=== PATIENT | female | born 1990 | race Caucasian/White ===

== ENCOUNTER → 2018-11-14 13:32 | Outpatient (CLI) | payer OTHER, SELFPAY ==
[2017-06-14 07:17] VITALS: BMI 22.3
--- NOTE | 2018-11-14 13:33 | US_ITS ---
STUDY: SECOND AND THIRD TRIMESTER OBSTETRICAL ULTRASOUND REASON FOR EXAM: Female, 28 years old. Routine survey. LMP: June 23, 2018. TECHNIQUE: Transabdominal and Transvaginal TECHNICAL QUALITY: Adequate. PRIOR ULTRASOUND: None. FINDINGS: There is a single intrauterine fetus. The fetus is in a transverse lie with the head on the maternal right side. There is demonstrated cardiac activity with a heart rate of 121 bpm. There is a normal amniotic fluid volume. The largest amniotic fluid pocket measures 5.2 cm x 4.6 cm. The amniotic fluid index (NASH) is normal. The placenta is posterior in location and is not low lying. There are Grade 0 placental changes. The cervix measures 4.4 cm in length. The bilateral adnexal regions are normal. BIOMETRY: BPD: 4.77 cm: 20 weeks, 3 days HC: 18.85 cm: 21 weeks, 2 days AC: 16.43 cm: 21 weeks, 4 days FL: 3.43 cm: 20 weeks, 6 days CI: 72% FL/BPD: 72% FL/HC: FL/AC: 21% HC/AC: 1.15 age by current US: 21 weeks, 1 days. KAREEN by current US: March 26, 2019. Estimated weight: 402 grams, +/- 59 grams, 76 %. Age by LMP: 20 weeks, 4 days. KAREEN by LMP: March 30, 2019. ANATOMY: Gender: Male Cranium: Normal lateral ventricles. Normal choroid plexus. Normal cerebellum. Normal cisterna magna. Normal face, nose and lips. Chest: Normal 4-chamber heart. Abdomen/Pelvis: Normal diaphragm. Normal stomach. Normal abdominal wall. Normal cord insertion. Normal 3 vessel cord. Normal kidneys. Normal bladder. Spine: Normal cervical spine. Normal thoracic spine. Normal lumbar spine. Normal sacrum. Extremities: Normal bilateral upper extremities. Normal bilateral lower extremities. US/OB Anatomy Scan IMPRESSION: Single live intrauterine gestation with a mean gestational age of 21 weeks and 1 day. Electronically Signed: Patrick Lockhart, at 9:39 EDT , Service support ,
[2018-11-14 17:25] LABS: Absolute Neutrophil Count 6.1 X10^3/uL (2.0-7.7); Basophil# 0.01 X10^3/uL; Basophil% 0.1 % (0-1); Eosinophil# 0.02 X10^3/uL; Eosinophils% 0.3 % (0-5); Hematocrit 32.9 % (37-47); Hemoglobin 10.8 g/dl (12.0-15.0); Lymphocyte % 17.8 % (19-41); Mean Corp Hgb Conc 32.8 g/gl (32-36); Mean Corpuscular Hgb 30.4 pg (27.0-32.0); Mean Corpuscular Volume 92.7 fL (81-99); Mean Platelet Vol. 9.3 fl (6.2-12.0); Monocyte% 3.8 % (0-10); Neutrophil # 6.12 X10^3/uL (2.7-7.7); Neutrophil % 77.7 % (47-70); Platelet Count 252 K/mm3 (150-450); RBC Distribution Width CV 14.6 % (11.6-14.6); RBC Distribution Width SD 47.9 fl (35.1-43.9); Red Blood Count 3.55 M/mm3 (4.2-5.4); White Blood Count 7.9 K/mm3 (4.4-11.0)
[2018-11-14 17:27] LABS: POSITIVE COUNT NO; POSITIVE DIFFERENTIAL NO; POSITIVE MORPHOLOGY NO
[2018-11-14 18:40] LABS: HIV - WCH Non-Reactive (Nonreactive); Rubella IgG 14.5 IU/mL
[2018-11-14 20:19] LABS: Chlamydia Trachomatis by PCR Negative (Negative); Neisserai gonorrhoeae by PCR Negative (Negative); Probe Check PASS; Sample Adequacy Control PASS; Specimen Processing Control PASS
[2018-11-17 10:04] LABS: HEPATITIS B SURFACE AG Negative (Negative)
[2018-11-19 12:53] LABS: HPV Reflexed? NOT INDICATED
[2018-11-21 01:43] LABS: Rapid Plasmin Reagin (RPR) NONREACTIVE (NONREACTIVE)
== END ==
PROVIDERS: Referring Provider Obstetrics & Gynecology; Visit Provider Obstetrics & Gynecology
DX: Z34.90 Encounter for supervision of normal pregnancy, unspecified, unspecified trimester (principal); Z12.4 Encounter for screening for malignant neoplasm of cervix
CPT/HCPCS: 36415; 76805; 85025; 86592; 86703; 86762; 86850; 86900; 87086; 87088; 87340; 87491; 87591; 87624; 88175; G0145

== ENCOUNTER → 2019-01-12 10:28 | Outpatient (CLI) | payer OTHER, SELFPAY ==
[2019-01-12 09:55] VITALS: BMI 19.3
[2019-01-12 11:13] LABS: Absolute Lymphocyte Count 0.93 X10^3/ul (0.83-4.51); Absolute Neutrophil Count 5.8 X10^3/uL (2.0-7.7); Basophil# 0.02 X10^3/uL; Basophil% 0.3 % (0-1); Eosinophil# 0.02 X10^3/uL; Eosinophils% 0.3 % (0-5); Hematocrit 32.7 % (37-47); Hemoglobin 10.8 g/dl (12.0-15.0); Lymphocyte # 0.93 X10^3/ul (4.0); Lymphocyte % 13.1 % (19-41); Mean Corpuscular Hgb 32.1 pg (27.0-32.0); Mean Corpuscular Volume 97.3 fL (81-99); Mean Platelet Vol. 9.1 fl (6.2-12.0); Monocyte# 0.29 X10^3/uL; Monocyte% 4.1 % (0-10); Neutrophil # 5.79 X10^3/uL (2.7-7.7); Neutrophil % 81.8 % (47-70); Platelet Count 179 K/mm3 (150-450); RBC Distribution Width CV 13.4 % (11.6-14.6); RBC Distribution Width SD 45.4 fl (35.1-43.9); Red Blood Count 3.36 M/mm3 (4.2-5.4); White Blood Count 7.1 K/mm3 (4.4-11.0)
[2019-01-12 11:14] LABS: POSITIVE COUNT NO; POSITIVE DIFFERENTIAL NO; POSITIVE MORPHOLOGY NO
[2019-01-12 11:21] LABS: Glucose Challenge Gest 1H 50g 120 mg/dL (70-140)
== END ==
PROVIDERS: Referring Provider Obstetrics & Gynecology; Visit Provider Obstetrics & Gynecology
DX: Z34.93 Encounter for supervision of normal pregnancy, unspecified, third trimester (principal); Z3A.29 29 weeks gestation of pregnancy
CPT/HCPCS: 36415; 82950; 85025

== ENCOUNTER → 2019-03-02 12:49 | Outpatient (CLI) | payer OTHER, SELFPAY ==
[2019-03-02 09:34] VITALS: BMI 19.3
== END ==
PROVIDERS: Referring Provider Obstetrics & Gynecology; Visit Provider Obstetrics & Gynecology
DX: Z34.93 Encounter for supervision of normal pregnancy, unspecified, third trimester (principal); Z3A.36 36 weeks gestation of pregnancy
CPT/HCPCS: 87081

== ENCOUNTER 2019-03-16 22:50 | Inpatient (IN) | payer SELFPAY ==
[2019-03-16 11:03] VITALS: BMI 19.3
[2019-03-16 23:12] VITALS: BMI 20.9
[2019-03-16] MEDS: Lactated Ringers 1,000 ML 50 ML IV (23:20)
[2019-03-16 23:53] LABS: Absolute Lymphocyte Count 1.24 X10^3/uL (0.83-4.51); Absolute Neutrophil Count 6.7 X10^3/uL (2.0-7.7); Basophil# 0.03 X10^3/uL; Basophil% 0.4 % (0-1); Eosinophil# 0.03 X10^3/uL; Eosinophils% 0.4 % (0-5); Hematocrit 34.8 % (37-47); Hemoglobin 11.7 g/dL (12.0-15.0); Lymphocyte # 1.24 X10^3/ul (4.0); Lymphocyte % 14.5 % (19-41); Mean Corp Hgb Conc 33.6 g/dL (32-36); Mean Corpuscular Volume 95.1 fL (81-99); Mean Platelet Vol. 10.3 fl (6.2-12.0); Monocyte% 5.9 % (0-10); NRBC Flagged by Analyzer 0 % (0-5); Neutrophil # 6.72 X10^3/uL (2.7-7.7); Neutrophil % 78.6 % (47-70); Platelet Count 194 K/mm3 (150-450); RBC Distribution Width CV 12.5 % (11.6-14.6); RBC Distribution Width SD 43.7 fl (35.1-43.9); Red Blood Count 3.66 M/mm3 (4.2-5.4); White Blood Count 8.5 K/mm3 (4.4-11.0)
[2019-03-17] MEDS: Oxytocin 30 units/NS 500 ml 30 UNITS/500 ML IV.SOLN 334 UNITS IV (00:49)
--- NOTE | 2019-03-17 01:01 | PCM.HP.OB ---
- Problem List (1) Vaginal after () Status: Acute (2) Anemia in preg-unspec Status: Acute (3) Status: Acute Qualifiers: Comment: carrier, ntd, and genetic screening declined. anatomy scan normal (4) Supervision of normal Status: Acute Qualifiers: Comment: PRR KAREEN 03/30/19 PC Robert Cowan, Desiree Altaf (5) Family history of congenital anomaly Status: Acute Comment: previous child with michel syndrome, family history dwarfism, declines any genetic screening. (6) Active labor at term Status: Acute History Date of Admission: 03/17/19 Final KAREEN: 03/30/19 Final KAREEN Source: US <20 weeks Gestational age: 38 Weeks and 1 Days History of this : This is a 28 year-old, at 38 weeks gestational age presents IAL 5 cm dilated. she is having regular contractions and some vaginal bleeding no lof. Surgical History: Surgical History (Last Reviewed 03/16/19 @ 11:03 by Yarely Urbina) History of delivery Z98.891 x1 Allergies No Known Allergies Allergy (Verified 03/16/19 11:03) Home Medications: Home Medications Ferrous Sulfate 325 mg PO DAILY@0800 06/14/17 Vits [Prenatabs FA] 1 tab PO DAILY 06/14/17 calcium carbonate,citrate-magnesium oxide 200 mg calcium-50 mg tablet tab PO tab 11/14/18 Smoking Status: Never smoker Number of Fetus(es): 1 Heart Tracing: fht 140 moderate variability reactive no decelerations category I tracing [place]: regular History Past Pregnancies: Past Pregnancies Pregancy History 4 Elective abortions Hx Para 3 Spontaneous abortions Hx # Term Pregnancies Ectopic pregnancies Hx # Pregnancies Multiple births # of living children Past Pregnancies Del. Date Name GA/Weeks Outcome Route Bth Weight Infant Gen Labor Lgth Anesthesia Del Locatn Provider FOB Unknown 2013 Chapo live - full term 7lbs 10oz Female Unknown 2014 Desiree live - full term 6lbs 6oz Male Unknown 2016 Robert live - full term 7lbs 2oz Male Delivery Date: No notes to display Delivery Date: On 11/14/18 @ 15:25 Мария Garibay michel syndrome, breech Delivery Date: No notes to display Labs: Mom's Labs & Results 03/16/19 03/16/19 23:20 23:20 WBC 8.5 RBC 3.66 L Hgb 11.7 L Hct 34.8 L MCV 95.1 MCH 32.0 MCHC 33.6 RDW Std Deviation 43.7 RDW Coeff of Machelle 12.5 Plt Count 194 MPV 10.3 Immature Gran % (Auto) 0.200 Neut % (Auto) 78.6 H Lymph % (Auto) 14.5 L [place] % (Auto) 5.9 Eos % (Auto) 0.4 Baso % (Auto) 0.4 Absolute Neuts (auto) 6.7 Absolute Lymphs (auto) 1.24 Nucleated RBC % 0 Blood Type A POSITIVE Antibody Screen NEGATIVE Course Did the patient receive Yes care? Labs Blood Type: A RH: POSITIVE RPR/VDRL/Syphilis Nonreactive Rubella status Immune HbSAg Negative Date Done: 11/14/18 Chlamydia Negative Gonorrhea Negative HIV/AIDS Non-Reactive Group B Strep: Negative Current Obstetrical History Gestational Diabetes No Incompetent Cervix No Infertility No IUGR No Macrosomia No Hypertension/Pre-eclampsia No Placenta Previa/Abruption No PTL/PROM No Uterine anomaly No Oligohydramnios No Polyhydramnios No Multiple gestation No Past Medical History Asthma No Diabetes No Hypertension No Heart disease No Mitral valve prolapse No Neurologic/Seizure disorder/ No Migraines Kidney disease No Liver disease No Varicosities No Clotting disorders/Hx of DVT No Thyroid Dysfunction No Other medical diseases No Psychiatric disorders No Major trauma No Abnormal PAP smear No Sleep apnea No Mammogram in the last 2 years No Social History Marital Status: Alleged father Altaf Werner Hx Smoking No Smoking Status Never smoker Expected Infant Delivery Method: Review of Systems Constitutional: Denies: Fever, Malaise Eyes: Denies: Blurred vision, Vision Change HEENT: Denies: Head Aches, Visual Changes Cardiovascular: Denies: Chest Pain, Palpitations Respiratory: Denies: Cough, Shortness of Breath, Wheezing Gastrointestinal: Denies: Abdominal Pain, Diarrhea, Nausea, Vomiting Genitourinary: Denies: Dysuria, Hematuria Musculoskeletal: Denies: Joint Pain, Muscle pain Skin: Denies: Lesions, Rash Neurological: Denies: Blurred vision, Focal weakness, Headaches Psychiatric: Denies: Anxiety, Depression Endocrine: Denies: Heat/ Cold Intolerance Hematologic/ Lymphatic: Denies: Easy Bruising, Easy Bleeding Physical Exam General: Alert, Cooperative, No apparent distress HEENT: Atraumatic, Normocephalic. Negative for: Thyromegaly, Lymphadenopathy Cardiovascular: Regular rate Lungs: Normal air movement Abdomen: Soft, Non Tender, Gravid Neurological: Deep Tendon Reflexes 2+/4 and Symmetrical, Neuro grossly intact. 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 Negative for: Vulvar lesions Estimated gestational size: Appropriate for gestational size Presentation: Cephalic Cervix Dilation (cm): 5 Assessment/Plan All Active Problems (Last Reviewed 03/16/19 @ 11:03 by Yarely Urbina) Vaginal after () (Acute) Active labor at term (Acute) Anemia in preg-unspec (Acute) (Acute) Supervision of normal (Acute) Family history of congenital anomaly (Acute) This is a 28 year-old, at 38 weeks gestational age presents IAL for TOLAC. h/o 1 successful TOLAC gbs neg minimal intervention planned
--- NOTE | 2019-03-17 01:04 | OP.PCM_ITS ---
Problem List (1) Vaginal after () Status: Acute (2) Anemia in preg-unspec Status: Acute (3) Status: Acute Qualifiers: Comment: carrier, ntd, and genetic screening declined. anatomy scan normal (4) Supervision of normal Status: Acute Qualifiers: Comment: PRR KAREEN 03/30/19 PC Robert Cowan Tyreevinh Altaf (5) Family history of congenital anomaly Status: Acute Comment: previous child with michel syndrome, family history dwarfism, declines any genetic screening. (6) Active labor at term Status: Acute Vaginal Delivery Maternal Presentation: Active Labor tolac Amniotic Membrane Rupture Type: Artificial Amniotic Fluid Description: Clear Final KAREEN: 03/30/19 Gestational age: 38 Weeks and 1 Days Date of Procedure: 03/17/19 Pre-Operative Diagnosis: ial Post-Operative Diagnosis: same Surgery/ Procedure Performed: - - Type of Anesthesia: None Description of Procedure: Patient began pushing and delivered the head in the HERMAN presentation. The head was delivered atraumatically and a loose nuchal cord ?1 was identified and easily reduced over the infant's head. The anterior and posterior shoulders delivered without complication followed by the rest of the and the infant was placed on the maternal abdomen. Delayed cord clamping was employed for approximately 60 seconds. Cord was clamped and cut and gentle traction was applied to the cord and the placenta delivered spontaneously immediately following it was noted to be intact with three-vessel cord. The perineum and va afshin were inspected and noted to have no laceration. EBL was 100 cc. Patient and infant tolerated delivery well. Presentation: HERMAN Placental Delivery Description: Spontaneous Placenta Disposition: [facility] Cord Vessel Description: 3 Vessels Nuchal Cord Compression: With compression Cord Entanglement: Around neck x 1, loose Estimated Blood Loss: 100 Infant A gender: Male (1 minute): 8 (5 minute): 9 Episiotomy Description: None Laceration: None Medications given after delivery: IV Pitocin Complications: None Multi Select Codes - Urinary/Genital Urinary/Genital CPT Codes: 01569 Vaginal Delivery [facility]
[2019-03-17] MEDS: Oxytocin 30 units/NS 500 ml 30 UNITS/500 ML IV.SOLN 167 UNITS IV (01:19)
[2019-03-17 04:03] VITALS: BP 112/58; PULSE 80; RESP 16; TEMP 37.3
[2019-03-17 08:30] VITALS: BP 100/58; PULSE 83; RESP 16; TEMP 36.9
[2019-03-17 12:45] VITALS: BP 107/59; PULSE 88; RESP 16; TEMP 36.7
[2019-03-17 15:59] VITALS: BP 104/55; PULSE 77; RESP 20; TEMP 36.4
[2019-03-17 20:40] VITALS: BP 96/53; PULSE 78; RESP 18; TEMP 36.6
[2019-03-18 01:25] VITALS: BP 105/53; PULSE 82; RESP 18; TEMP 36.6
[2019-03-18 04:45] VITALS: BP 105/56; PULSE 85; RESP 18; TEMP 36.1
--- NOTE | 2019-03-18 07:48 | PCM.PN.OB ---
Patient Problems: Active and Suspected Problems (Last Reviewed 03/16/19 @ 11:03 by Yarely Urbina) Vaginal after () (Acute) Active labor at term (Acute) Subjective: doing well no complaints pain controlled no CP SOB N V ambulating well tolerating po lochia moderate, going well - Physical Exam General: Alert, Oriented x3 Abdomen: Soft, Non Tender, - - FF below U Vital Signs Temp Pulse Resp BP 97.0 F L 85 18 105/56 L 03/18/19 04:45 03/18/19 04:45 03/18/19 04:45 03/18/19 04:45 Oxygen Delivery Method Room Air Weight: 130 lb Body Mass Index (BMI) 20.9 Intake and Output for Last 24 Hours 03/16/19 03/17/19 03/18/19 23:59 23:59 23:59 Intake Total 749 / 749 Output Total 1100 / 1100 Balance -351 / -351 Medical Necessity - Tobacco Use Smoking Status: Never smoker Assessment/Plan All Active Problems (Last Reviewed 03/16/19 @ 11:03 by Yarely Urbina) Vaginal after () (Acute) Active labor at term (Acute) Anemia in preg-unspec (Acute) (Acute) Supervision of normal (Acute) Family history of congenital anomaly (Acute) s/p PPD # 1 1. routine post delivery care 2. breast feeding- support given 3. rh positive 4. rubella immune 5. Home today
--- NOTE | 2019-03-18 07:49 | DCINST_ITS ---
Additional Instructions: If you experience any of the following, contact your healthcare provider. * Bleeding that soaks a pad every hour for 2 hours * Fever 100.4 or higher * Unrelieved incision or abdominal pain * Swelling, redness, discharge or bleeding from your incision or episiotomy site * Your incision begins to separate * Problems urinating (including inability to urinate or burning while urinating). * Visual changes * Severe headache * Flu-like symptoms * Pain or redness in one of both of your breasts * Pain, warmth, tenderness or swelling in your legs, especially the calf area * Frequent nausea and vomiting * Symptoms of depression or anxiety If you experience any of the following, call 911 or go to the nearest Emergency Room. * Chest pain * Problems breathing * Seizure activity * Partial or complete paralysis of a body part, slurred speech, weakness or drooping of the face, or a sudden inability to walk or hold your balance Allergies/Adverse Reactions: Allergies No Known Allergies Allergy (Verified 03/16/19 11:03) Medications to take at Discharge Ferrous Sulfate 325 mg PO DAILY@0800 06/14/17 Vits [Prenatabs FA] 1 tab PO DAILY 06/14/17 calcium carbonate,citrate-magnesium oxide 200 mg calcium-50 mg tablet tab PO tab 11/14/18 Primary Care Physician: Nettie Gonzalez MD [Primary Care Provider] - Test Results: Test results from this visit will be discussed in further detail at your follow- up appointment, if applicable.
--- NOTE | 2019-03-18 07:49 | PCM.DCVAG ---
Additional Instructions: If you experience any of the following, contact your healthcare provider. Bleeding that soaks a pad every hour for 2 hours Fever 100.4 or higher Unrelieved incision or abdominal pain Swelling, redness, discharge or bleeding from your incision or episiotomy site Your incision begins to separate Problems urinating (including inability to urinate or burning while urinating). Visual changes Severe headache Flu-like symptoms Pain or redness in one of both of your breasts Pain, warmth, tenderness or swelling in your legs, especially the calf area Frequent nausea and vomiting Symptoms of depression or anxiety If you experience any of the following, call 911 or go to the nearest Emergency Room. Chest pain Problems breathing Seizure activity Partial or complete paralysis of a body part, slurred speech, weakness or drooping of the face, or a sudden inability to walk or hold your balance Allergies/Adverse Reactions: Allergies No Known Allergies Allergy (Verified 03/16/19 11:03) Medications to take at Discharge Ferrous Sulfate 325 mg PO DAILY@0800 06/14/17 Vits [Prenatabs FA] 1 tab PO DAILY 06/14/17 calcium carbonate,citrate-magnesium oxide 200 mg calcium-50 mg tablet tab PO tab 11/14/18 Primary Care Physician: Nettie Gonzalez MD [Primary Care Provider] - Test Results: Test results from this visit will be discussed in further detail at your follow-up appointment, if applicable.
[2019-03-18 08:40] VITALS: BP 100/54; PULSE 78; RESP 16; TEMP 37
[2019-03-18 14:16] VITALS: BP 100/52; PULSE 90; RESP 16; TEMP 36.4
[2019-03-18 14:25] VITALS: BP 103/56; PULSE 92; RESP 16; TEMP 36.9
== END 2019-03-18 18:15 | disposition home or self-care (01) | DRG 807 ==
PROVIDERS: Admitting Provider Obstetrics & Gynecology; Visit Provider Obstetrics & Gynecology
DX: O34.219 Maternal care for unspecified type scar from previous cesarean delivery (principal); O99.02 Anemia complicating childbirth; D64.9 Anemia, unspecified; O69.81X0 Labor and delivery complicated by cord around neck, without compression, not applicable or unspecified; Z79.899 Other long term (current) drug therapy; Z3A.38 38 weeks gestation of pregnancy; Z37.0 Single live birth
CPT/HCPCS: 59025; 59050; 85025; 86850; 86900; 86901; 99218; J7120; G0378

== ENCOUNTER → 2021-11-30 | Outpatient (CLI) | payer OTHER, SELFPAY ==
[2021-11-30 10:24] LABS: Absolute Lymphocyte Count 0.86 X10^3/uL (0.83-4.51); Absolute Neutrophil Count 4.2 X10^3/uL (2.0-7.7); Basophil# 0.02 X10^3/uL; Basophil% 0.4 % (0-1); Eosinophil# 0.01 X10^3/uL; Eosinophils% 0.2 % (0-5); Hematocrit 30.6 % (37-47); Hemoglobin 10.2 g/dL (12.0-15.0); Lymphocyte # 0.86 X10^3/ul (0.83-4.51); Lymphocyte % 16.1 % (19-41); Mean Corp Hgb Conc 33.3 g/dL (32-36); Mean Corpuscular Hgb 30.7 pg (27.0-32.0); Mean Corpuscular Volume 92.2 fL (81-99); Mean Platelet Vol. 9.2 fl (6.2-12.0); Monocyte% 3.7 % (0-10); NRBC Flagged by Analyzer 0 % (0-5); Neutrophil # 4.23 X10^3/uL (2.7-7.7); Neutrophil % 79.2 % (47-70); Platelet Count 188 K/mm3 (150-450); RBC Distribution Width CV 13.6 % (11.6-14.6); RBC Distribution Width SD 45.9 fl (35.1-43.9); Red Blood Count 3.32 M/mm3 (4.2-5.4); White Blood Count 5.3 K/mm3 (4.4-11.0)
[2021-11-30 11:45] LABS: Rubella IgG Equiv (Nonreactive)
[2021-12-05 18:37] LABS: HPV Reflexed? NOT INDICATED
== END | disposition home or self-care (01) ==
LOC: PAVLAB 09:55
PROVIDERS: Referring Provider Obstetrics & Gynecology; Visit Provider Obstetrics & Gynecology
DX: Z34.90 Encounter for supervision of normal pregnancy, unspecified, unspecified trimester (principal)
CPT/HCPCS: 36415; 85025; 86762; 86850; 86900; 86901; 87086; 87088; 88175; G0145

== ENCOUNTER → 2022-01-24 | Outpatient (CLI) | payer SELFPAY, OTHER ==
--- NOTE | 2022-01-24 08:10 | US_ITS ---
STUDY: SECOND AND THIRD TRIMESTER OBSTETRICAL ULTRASOUND REASON FOR EXAM: Female, 31 years old anatomy LMP: 08/27/2021 TECHNIQUE: Transabdominal and Transvaginal TECHNICAL QUALITY: Adequate. PRIOR ULTRASOUND: None. FINDINGS: There is a single intrauterine fetus. The fetus is in a breech presentation. There is demonstrated cardiac activity with a heart rate of 144 bpm. There is a normal amniotic fluid volume. The largest amniotic fluid pocket measures 4.4 cm. The amniotic fluid index (NASH) is cm. The placenta is left lateral in location and is not low lying. There are Grade 1 placental changes. The cervix measures 5.0 cm in length. The adnexal regions are not visualized. BIOMETRY: BPD: 5.5 cm: 22 weeks, 6 days HC: 20.5 cm: 22 weeks, 4 days AC: 18.6 cm: 23 weeks, 2 days FL: 4.1 cm: 23 weeks, 1 days CI: 80.55 FL/BPD: 73.38 FL/HC: 19.82 FL/AC: 21.87 HC/AC: 1.10 age by current US: 22 weeks, 6 days. KAREEN by current US: 05/24/2022. Estimated weight: 579 grams, +/- 87 grams, 99 %. Age by LMP: 21 weeks, 3 days. KAREEN by LMP: 06/03/2022. ANATOMY: Gender: Male Cranium: Normal lateral ventricles. Normal choroid plexus. Normal cerebellum. Normal cisterna magna. Normal face, nose and lips. Chest: Normal 4-chamber heart. Abdomen/Pelvis: Normal diaphragm. Normal stomach. Normal abdominal wall. Normal cord insertion. Normal 3 vessel cord. Normal kidneys. Normal bladder. Spine: Normal cervical spine. Normal thoracic spine. Normal lumbar spine. Normal sacrum. Extremities: Normal bilateral upper extremities. Normal bilateral lower extremities. US/OB Anatomy Scan IMPRESSION: Living intrauterine of 22 weeks 6 days as described above. age is discordant from age by LMP 21 weeks 3 days suggestive of incorrect dates or macrosomia. Electronically Signed: Germain Love MD at 14:21 EDT , Refer to transabdominal and transvaginal OB ultrasound Electronically Signed: Germain Love MD at 14:21 EDT ,
== END | disposition home or self-care (01) ==
LOC: OPUS 08:09
PROVIDERS: Visit Provider Obstetrics & Gynecology
DX: O41.8X20 Other specified disorders of amniotic fluid and membranes, second trimester, not applicable or unspecified (principal); O46.8X2 Other antepartum hemorrhage, second trimester; Z3A.17 17 weeks gestation of pregnancy
CPT/HCPCS: 76805; 76817

== ENCOUNTER → 2022-02-23 | Outpatient (CLI) | payer OTHER, SELFPAY ==
[2022-02-23 10:13] LABS: Absolute Lymphocyte Count 0.97 X10^3/uL (0.83-4.51); Absolute Neutrophil Count 3.9 X10^3/uL (2.0-7.7); Basophil# 0.03 X10^3/uL; Basophil% 0.6 % (0-1); Eosinophil# 0.03 X10^3/uL; Eosinophils% 0.6 % (0-5); Hematocrit 32.5 % (37-47); Hemoglobin 10.6 g/dL (12.0-15.0); Lymphocyte # 0.97 X10^3/ul (0.83-4.51); Lymphocyte % 18.5 % (19-41); Mean Corp Hgb Conc 32.6 g/dL (32-36); Mean Corpuscular Hgb 32.2 pg (27.0-32.0); Mean Corpuscular Volume 98.8 fL (81-99); Mean Platelet Vol. 9.2 fl (6.2-12.0); Monocyte# 0.32 X10^3/uL; Monocyte% 6.1 % (0-10); NRBC Flagged by Analyzer 0 % (0-5); Neutrophil # 3.85 X10^3/uL (2.7-7.7); Neutrophil % 73.6 % (47-70); Platelet Count 187 K/mm3 (150-450); RBC Distribution Width CV 13.5 % (11.6-14.6); Red Blood Count 3.29 M/mm3 (4.2-5.4); White Blood Count 5.2 K/mm3 (4.4-11.0)
[2022-02-23 10:48] LABS: Glucose Challenge Gest 1H 50g 100 mg/dL (70-140)
== END | disposition home or self-care (01) ==
PROVIDERS: Referring Provider Obstetrics & Gynecology; Visit Provider Obstetrics & Gynecology
DX: Z34.90 Encounter for supervision of normal pregnancy, unspecified, unspecified trimester (principal)
CPT/HCPCS: 36415; 82950; 85025

== ENCOUNTER → 2022-05-03 | Outpatient (CLI) | payer OTHER, SELFPAY | END | disposition home or self-care (01) | LOC: LABSPEC 16:09 | PROVIDERS: Visit Provider Registered Nurse | DX: Z34.90 Encounter for supervision of normal pregnancy, unspecified, unspecified trimester (principal) | CPT/HCPCS: 87081 ==

== ENCOUNTER 2022-05-30 19:35 | Inpatient (IN) | payer SELFPAY, OTHER ==
[2022-05-30] VITALS (13 sets, daily range): BP systolic 98–106; BP diastolic 55–65; PULSE 68–107; TEMP 37.1–37.3; BMI 22.5
[2022-05-30] MEDS: Lactated Ringers 1,000 ML 50 ML IV (19:50)
--- NOTE | 2022-05-30 19:56 | HP.PCM.OB_ITS ---
HPI - General General Date of Admission: 05/30/22 HPI Narrative RUT BOTELLO, is a 31 F estimated due date 06/26/2022 at 40+4 who presents for family following study contractions at home starting this afternoon. Active fetus, denies leaking of fluid/vaginal bleeding. Patient's past medical significant for rubella status nonimmune, mild anemia, history of with x2 successful 's. Maternal Data Information KAREEN Calculator Estimated Delivery Date Method Current WG Current Estimate 05/26/22 Ultrasound #1 40w 4d Other Estimates 06/03/22 LMP (Certain) 39w 3d Final KAREEN Source: US <20 weeks PFSH PFSH Medical History Mild anemia Rubella immune status not known Medical History no medical history Home Medications vits,calcium no.78-iron fumarate-folic acid 29 mg-1 mg tablet 1 tab PO DAILY 06/14/17 [History Last Taken 05/30/22 09:00 1 tab] folic acid 1 mg tablet 1 mg PO DAILY 11/07/21 [History Last Taken 05/30/22 12:00 1 tab] Allergy/AdvReac Type Severity Reaction Status Date / Time No Known Allergies Allergy Verified 05/30/22 19:17 Family History no significant family his Surgical History History of delivery Surgical History no surgical history Social History adopted: No household members: spouse housing: house current occupational status: unemployed current occupation: [employer] current occupational exposures/hazards: No pets and animals: No history of recent travel: No sexually active: Yes Smoking Status: Never smoker alcohol intake: never substance use type: does not use caffeine: No what type of physical activity do you participate in: walking seatbelt use: always do you feel safe at home: Yes additional social history: [employer] Patient is a [employer] History 6 Elective abortions 1 Hx Para 4 Spontaneous abortions 0 Hx # Term Pregnancies 0 Ectopic pregnancies 0 Hx # Pregnancies 0 Multiple births 0 # of living children 4 Past Pregnancies Del. Date Name GA/Weeks Outcome Route Bth Weight Infant Gen Labor Lgth Anesthesia Del Locatn Provider FOB Unknown 2013 Chapo 40 live - full term 7lbs 10oz Female 8 none P[facility] Junior [employer]ic [employer]er Rachael Lezama Altaf Unknown 2014 [place] 40 live - full term 6lbs 6oz Mal e 0 spinal [facility] unknown Altaf Unknown 2017 Robert 38 live - full term 7lbs 2oz Male 8 none [facility] Allen Solitario 03/17/19 Branden 38 live - full term 7lbs 6oz Male 8 no ne [facility] ANTONETTE Altaf Delivery Date: Last Updated by: Yarely Somers No complications Delivery Date: Last Updated by: Мария Garibay MD michel syndrome, breech Delivery Date: Last Updated by: Yarely Somers No complications with successful Delivery Date: 03/17/19 Last Updated by: Yarely Somers no complications with Visit Details Expected Delivery Route/Plan patient counseled regarding risks/benefits of trial of labor versus repeat . ACOG/uptodate education given to patient. 95.2 % likelihood of success per calculator TOLAC consent form signed: completed Plans Covid status: declined Flu vaccine: declined Tdap vaccine: declined Rhogam: NA LARC form signed: yes Problem list reviewed and updated with the most current plan of care details and appropriate orders placed. Relevant counseling for the gestational age provided. Continue routine care and follow up unless otherwise noted in visit notes/problem list details OB Flowsheet Initial Weight: Not Recorded Date -?-?-?-?-?-?-?-?-?-?-?-?- EGA Weight BP Urine Prot -?-?-?-?-?-?-?-?-?-?-?-?- Glucose FHR FuHt Pres Dilation -?-?-?-?-?-?-?-?-?-?-?-?- Effaced St Visit Note 11/30/21 -?-?-?-?-?-?-?-?-?-?-?-?- 14w 5d 114 lb 110/72 -?-?-?-?-?-?-?-?-?-?-?-?- 160 -?-?-?-?-?-?-?-?-?-?-?-?- SM- measuring ov er a week ahead, but within margin of error, subchorionic hemorrhage seen near low lying placenta, reviewed precautions 12/26/21 -?-?-?-?-?-?-?-?-?-?-?-?- 18w 3d 119 lb 120/72 Negative -?-?-?-?-?-?-?-?-?-?-?-?- Negative 150 -?-?-?-?-?-?-?-?-?-?-?-?- SM- no vb lof no regular ctx 01/24/22 -?-?-?-?-?-?-?-?-?-?-?-?- 22w 4d 122 lb 100/56 Negative -?-?-?-?-?-?-?-?-?-?-?-?- Negative 144 -?-?-?-?-?-?-?-?-?-?-?-?- JV- ultrasound p ending from today. no comlaints 02/23/22 -?-?-?-?-?-?-?-?-?-?-?-?- 26w 6d 124 lb 92/70 Negative -?-?-?-?-?-?-?-?-?-?-?-?- Negative 145 27 -?-?-?-?-?-?-?-?-?-?-?-?- SM- no vb lof go od fm no reuglar ctx 03/13/22 -?-?-?-?-?-?-?-?-?-?-?-?- 29w 3d 129 lb 2 oz 90/52 Nega tive -?-?-?-?-?-?-?-?-?-?-?-?- Negative 151 28 -?-?-?-?-?-?-?-?-?-?-?-?- MH-No VB, LOF. G ood FM. Larc. 03/28/22 -?-?-?-?-?-?-?-?-?-?-?-?- 31w 4d 129 lb 6 oz 90/52 -?-?-?-?-?-?-?-?-?-?-?-?- 155 32 Cephalic -?-?-?-?-?-?-?-?-?-?-?-?- JV- no tdap for rut. no complaints. no dec fm, loss of fluid, for bleeding 04/13/22 -?-?-?-?-?-?-?-?-?-?-?-?- 33w 6d 133 lb 8 oz 92/53 Nega tive -?-?-?-?-?-?-?-?-?-?-?-?- Negative 156 33 Cephalic -?-?-?-?-?-?-?-?-?-?-?-?- JV- no lof, vagi nal bleeding, or dec fm. encourage compression stockings 04/26/22 -?-?-?-?-?-?-?-?-?-?-?-?- 35w 5d 132 lb 99/61 Negative -?-?-?-?-?-?-?-?-?-?-?-?- Negative 135 37 Cephalic -?-?-?-?-?-?-?-?-?-?-?-?- SM- no vb lof go od fm no regular ctx 05/03/22 -?-?-?-?-?-?-?-?-?-?-?-?- 36w 5d 135 lb 98/65 Trace -?-?-?-?-?-?-?-?-?-?-?-?- Negative 142 37 Cephalic 1 -?-?-?-?-?--?-?-?-?-?-?-?- 20 -3 LC- no vb, lof,ctx. +FM. gbs collected. consent signed. varicose vein to right labia, comfort measures provided. 05/10/22 -?-?-?-?-?-?-?-?-?-?-?-?- 37w 5d 132 lb 9.6 oz 101/65 -?-?-?-?-?-?-?-?-?-?-?-?- 137 38 Cephalic -?-?-?-?-?-?-?-?-?-?-?-?- LC- doing well. no vb,ctx or lof. +FM. LC- doing well. no vb,ctx or lof. +FM. declines exam today. labor precautions given. ready for baby. LC- doing well. no vb,ctx or lof. +FM. declines exam today. labor precautions given. ready for baby.urine neg for protein/glucose 05/16/22 -?-?-?-?-?-?-?-?-?-?-?-?- 38w 4d 135 lb 8 oz 94/60 Nega tive -?-?-?-?-?-?-?-?-?-?-?-?- Negative 130 38 Cephalic 1 -?-?-?-?-?-?-?-?-?-?-?-?- 50 -3 Lc- doing well. denies lof,vb,ctx. good fm. 05/22/22 -?-?-?-?-?-?-?-?-?-?-?-?- 39w 3d 136 lb 96/62 Negative -?-?-?-?-?-?-?-?-?-?-?-?- Negative 140 39 Cephalic 2 -?-?-?-?-?-?-?-?-?-?-?-?- 60 -3 LC-doing w ell. denies concerns. no lof,vb,ctx. good fm. membrane sweep performed today, tolerated well. 05/29/22 -?-?-?-?-?-?-?-?-?-?-?-?- 40w 3d 135 lb 8 oz 101/63 Nega tive -?-?-?-?-?-?-?-?-?-?-?-?- Negative 144 39 Cephalic 4 -?-?-?-?-?-?-?-?-?-?-?-?- 80 -1 STEPHEN- pt is requesting amniotomy and IOL as soon as L&D will allow it. She denies lof, vaginal bleeding, or dec fm 05/30/22 -?-?-?-?-?-?-?-?-?-?-?-?- 40w 4d 135 lb 9.349 oz 101/65 -?-?-?-?-?-?-?-?-?-?-?-?- -?-?-?-?-?-?-?-?-?-?-?-?- NST FHR Rate Baby A Baseline: 140 Variability:: Moderate Accelerations:: 15 x 15 Decelerations:: Variable NST Reactive:: Yes FHR Category:: Category II Uterine Activity:: q2 min ROS Cardiovascular Cardiovascular: Denies abdominal pain, chest pain, diaphoresis, dyspnea, edema or fatigue Respiratory/Chest Respiratory/Chest: Denies change in mental status, chest congestion, chest tightness, cough, shortness of breath at rest, shortness of breath with exertion, breast mass, breast pain, breast skin changes, breast swelling, change in breast shape or nipple discharge Gastrointestinal Gastrointestinal: Denies diarrhea, hemorrhoids, nausea, vomiting or weight changes Genitourinary Genitourinary: Denies abdominal discomfort, burning urination, change in libido, change in urinary stream, contractions, difficulty urinating, dysuria, movement, low back pain, urinary frequency, urinary hesitancy, urinary incontinence or urinary urgency Musculoskeletal Musculoskeletal: Reports none Integumentary Integumentary: Reports none Neurologic Neurologic: Reports none Psychiatric Psychiatric: Reports none Endocrine Endocrinology: Reports none Hematologic/Lymphatic Hematologic/Lymphatic: Reports none Allergic/Immunologic Allergic/Immunologic: Reports none Vital Signs Vital Signs Vital Signs: 05/30/22 19:22 05/30/22 19:22 05/30/22 19:23 Temperature 98.8 F Temperature Source Pulse Rate 107 H Blood Pressure 101/65 BP Systolic 101 BP Diastolic 65 05/30/22 19:24 Temperature Temperature Source Temporal Pulse Rate Blood Pressure BP Systolic BP Diastolic Weight Weight: 135 lb 9.349 oz Body Mass Index (BMI) 22.5 Physical Exam Const alert and oriented x3 General Appearance: cooperative, comfortable and well kempt; Negative for in distress Orientation / Consciousness: awake and oriented to person Exam Limitations: no limitations HEENT normocephalic Mouth: oral and palatal mucosa normal Neck full ROM and thyroid normal Chest inspection of chest normal Resp normal respiratory effort Effort and Inspection: able to speak in complete sentences and symmetric chest movement Cardio regular rate Peripheral Pulses: pulses 2+ throughout GI normal to inspection, nondistended, normoactive bowel sounds Inspection: gravid no CVA tenderness and appearance of the vagina normal External Female Exam: normal appearance of the urethra; Negative for external lesion OB / External & Speculum: external exam normal Manual OB Exam: estimated gestational size appropriate and presentation cephalic Uterus Palpation: Negative for uterus tender Extremity normal to inspection Skin no rashes or lesions noted Neuro deep tendon reflexes 2+ bilaterally and gait normal Motor Exam: strength 5/5 throughout and clonus absent Psych Activity / Motor Behavior: appropriate eye contact Speech: normal speech Labs Labs Labs: Blood Type A POSITIVE Antibody Screen NEGATIVE Hct 32.5 % (37-47) L Hgb 10.6 g/dL (12.0-15.0) L Obstetrics US Rubella IgG Antibody Equiv (Nonreactive) Hep Bs Antigen Negative (Negative) HIV 1&2 Antibody Non-Reactive (Nonreactive) Glucose 1 Hr 50 gm 100 mg/dL (70-140) Group B Strep DNA Negative (Negative) Rhogam given: No Assessment & Plan (1) Mild anemia: COMMENT: iron supplement, improving (2) History of delivery affecting : COMMENT: h/o successfull , plan (3) Supervision of normal : QUALIFIERS: Trimester: third trimester COMMENT: PRR KAREEN 05/26/22 boy Robert Arroyo [place], Branden Altaf (has all boys. record has error on it) (4) : QUALIFIERS: Weeks of gestation: 40 weeks Qualified Code(s): Z3A.40 - 40 weeks gestation of COMMENT: GBS neg. genetic, carrier screening declined. declined STD testing at [facility] but agrees to be done at delivery. (5) Family history of congenital anomaly: COMMENT: previous child with michel syndrome, family history dwarfism, declines any genetic screening. PLAN: Plan Patient presents [IAL with hx of c/s. AROM PRN if needed]. Pain management: unmedicated. GBS negative Management of any complications: [none] I have reviewed the [facility] and made any clinically relevant updates. Dr. Beckham aware of admission, TOLAC and agrees with above plan. is in house.
[2022-05-30 20:00] LABS: Absolute Lymphocyte Count 1.15 X10^3/uL (0.83-4.51); Absolute Neutrophil Count 5.3 X10^3/uL (2.0-7.7); Basophil# 0.01 X10^3/uL; Basophil% 0.1 % (0-1); Eosinophil# 0.03 X10^3/uL; Eosinophils% 0.4 % (0-5); Hematocrit 35.1 % (37-47); Lymphocyte # 1.15 X10^3/ul (0.83-4.51); Lymphocyte % 16.6 % (19-41); Mean Corp Hgb Conc 34.2 g/dL (32-36); Mean Corpuscular Hgb 31.9 pg (27.0-32.0); Mean Corpuscular Volume 93.4 fL (81-99); Mean Platelet Vol. 9.8 fl (6.2-12.0); Monocyte# 0.46 X10^3/uL; Monocyte% 6.6 % (0-10); NRBC Flagged by Analyzer 0 % (0-5); Neutrophil # 5.25 X10^3/uL (2.7-7.7); Platelet Count 210 K/mm3 (150-450); RBC Distribution Width CV 13.1 % (11.6-14.6); RBC Distribution Width SD 44.6 fl (35.1-43.9); Red Blood Count 3.76 M/mm3 (4.2-5.4); White Blood Count 6.9 K/mm3 (4.4-11.0)
[2022-05-30] MEDS: Oxytocin 10 UNITS/ML Vial IM ×2 (21:45)
--- NOTE | 2022-05-30 22:18 | EX.PCM.OBRPT ---
Assessment & Plan (1) Rubella immune status not known: COMMENT: non-immune vaccine after (2) Mild anemia: COMMENT: iron supplement, improving (3) History of delivery affecting : COMMENT: h/o successfull , plan (4) : QUALIFIERS: Weeks of gestation: 40 weeks Qualified Code(s): Z3A.40 - 40 weeks gestation of COMMENT: GBS neg. genetic, carrier screening declined. declined STD testing at [facility] but agrees to be done at delivery. (5) Supervision of normal : QUALIFIERS: Trimester: third trimester COMMENT: PRR KAREEN 05/26/22 boy Robert Arroyo [place], Branden Altaf (has all boys. record has error on it) (6) Family history of congenital anomaly: COMMENT: previous child with michel syndrome, family history dwarfism, declines any genetic screening. (7) (vaginal after ): COMMENT: 40+4, by LC, baby sade Montemayor 1min 45 sec shoulder dystocia Maternal Data Information KAREEN Calculator Estimated Delivery Date Method Current WG Current Estimate 05/26/22 Ultrasound #1 40w 4d Other Estimates 06/03/22 LMP (Certain) 39w 3d Final KAREEN Source: US <20 weeks Gestational age: 40+4 Vaginal Delivery Maternal Presentation Maternal Presentation: Active Labor Maternal Presentation: pt presented to L&D in active labor. Operative Information Date of Procedure: 05/30/22 Pre-Operative Diagnosis: labor Post-Operative Diagnosis: Surgery / Procedure Performed: Type of Anesthesia: None Estimated Blood Loss: 399 Time of Delivery: 21:41 Findings Description of Procedure: Patient began pushing and delivered the head in the [ABIGAIL] presentation. The head was delivered atraumatically tight nuchal cord x1 was discovered unable to be reduced. Shoulder dystocia identified and called. Melissa, suprapubic pressure were attempted patient's position was adjusted, cord was attempted to double clamped and cut to allow additional movement of body. Posterior arm was attempted to be extracted, Figueroa maneuver allowed for resolution of dystocia. 1 minute 45 seconds in total. Infant handed to sheet metal helper, please see note for further details. Apgars 6 and 8. ABGs and VBG's were obtained. 10 units Pitocin delivered IM. Placenta delivered immediately following it was noted to be intact with three-vessel cord and intact. The perineum and vagina were inspected and [noted to have no laceration]. EBL was [300 cc]. Mother and infant left in stable condition bonding skin to skin. Presentation: ABIGAIL Amniotic Membrane Rupture Type: Artificial Amniotic Fluid Description: Lightly stained meconium Placental Delivery Description: Spontaneous Placenta Disposition: [facility] Cord Vessel Description: 3 Vessels Cord Entanglement: Around neck x 1, tight Nuchal Cord Compression: With compression Cord Gases: ABG and VBG Infant A Gender: Male (1 minute): 6 (5 minute): 8 Delayed Cord Clamping: No Post Vaginal Delivery Medications Given After Delivery: IV Pitocin Episiotomy Description: None Laceration: None Complication Complications: - (shoulder dystocia) Multi Select Codes Urinary/Genital Urinary/Genital CPT Codes: 01044 delivery [facility]
[2022-05-30 22:43] LABS: HIV - WCH Non-Reactive (Nonreactive); Hepatitis B Surface Antigen Non-Reactive (Nonreactive); Hepatitis C Antibody Non-Reactive (Nonreactive)
[2022-05-31 00:12] VITALS: BP 102/56; PULSE 76
[2022-05-31] MEDS: Acetaminophen 500 MG Tablet 1000 MG PO (00:24)
[2022-05-31 03:30] VITALS: BP 98/55; PULSE 61; RESP 18
[2022-05-31 08:31] VITALS: BP 102/63; PULSE 67; RESP 16; TEMP 36.4; O2SAT 99
[2022-05-31 09:23] LABS: Syphilis Antibodies Non-reactive
--- NOTE | 2022-05-31 11:41 | PCM.PN.OB ---
Subjective Subjective Patient doing well without complaints. Tolerating PO. Ambulating and voiding without difficulty. Feeding well. Denies chest pain, shortness of breath, calf pain/swelling, fevers, chills, lightheadedness. Objective Data Objective Data Vital Signs: Vital Signs Temp Pulse Resp BP Pulse Ox O2 Del Method 97.6 F L 67 16 102/63 99 Room Air 05/31/22 08:31 05/31/22 08:31 05/31/22 08:31 05/31/22 08:31 05/31/22 08:31 05/31/22 08:31 Oxygen Delivery Method Room Air Weight: 135 lb 9.349 oz Body Mass Index (BMI) 22.5 Intake & Output: Intake and Output for Last 24 Hours 05/29/22 05/30/22 05/31/22 23:59 23:59 23:59 Intake Total 100 / 100 Output Total 300 / 300 Balance 100 / 100 -300 / -300 Lab / Micro Data Result Diagrams: 05/30/22 19:50 Labs: Laboratory Results - last 24 hr 05/30/22 19:50: WBC 6.9, RBC 3.76 L, Hgb 12.0, Hct 35.1 L, MCV 93.4, MCH 31.9, MCHC 34.2, RDW Std Deviation 44.6 H, RDW Coeff of Machelle 13.1, Plt Count 210, MPV 9.8, Immature Gran % (Auto) 0.300, Neut % (Auto) 76.0 H, Lymph % (Auto) 16.6 L, Willacy % (Auto) 6.6, Eos % (Auto) 0.4, Baso % (Auto) 0.1, Absolute Neuts (auto) 5.3, Absolute Lymphs (auto) 1.15, Nucleated RBC % 0 05/30/22 19:50: Syphilis Total Ab Non-reactive 05/30/22 19:50: Blood Type A POSITIVE, Antibody Screen NEGATIVE 05/30/22 19:50: Hep Bs Antigen Non-Reactive, Hepatitis C Antibody Non-Reactive, HIV 1&2 Antibody Non-Reactive Micro: Microbiology 05/30/22 19:50 Nasal Secretion SARS-CoV-2 Antigen (Rapid) - Final Physical Exam Const alert and oriented x3 HEENT normocephalic Eyes PERRL Neck full ROM Resp normal respiratory effort GI soft to palpation GI Narrative: FF below U Assessment & Plan (1) (vaginal after ): COMMENT: 40+4, by LC, baby boy Sim 1min 45 sec shoulder dystocia (2) Rubella immune status not known: COMMENT: non-immune vaccine after (3) Family history of congenital anomaly: COMMENT: previous child with michel syndrome, family history dwarfism, declines any genetic screening. PLAN: Plan s/p PPD # 1 1. routine post delivery care 2. breast feeding- support given 3. rh positive 4. rubella immune
[2022-05-31 12:05] VITALS: BP 100/48; PULSE 71; RESP 16; TEMP 36.3; O2SAT 99
[2022-05-31 16:15] VITALS: BP 91/48; PULSE 71; RESP 16; TEMP 36.6; O2SAT 99
[2022-05-31 19:59] VITALS: BP 91/55; PULSE 80; RESP 16; TEMP 36.6; O2SAT 97
[2022-06-01 02:50] VITALS: BP 97/53; PULSE 64; RESP 16; TEMP 36.3; O2SAT 96
[2022-06-01] MEDS: Acetaminophen 500 MG Tablet 1000 MG PO (05:30)
--- NOTE | 2022-06-01 08:34 | PCM.PN.OB ---
Subjective Subjective Patient doing well without complaints. Tolerating PO. Ambulating and voiding without difficulty. feeding well. Denies chest pain, shortness of breath, calf pain/swelling, fevers, chills, lightheadedness. Objective Data Objective Data Vital Signs: Vital Signs Temp Pulse Resp BP Pulse Ox O2 Del Method 97.4 F L 64 16 97/53 L 96 Room Air 06/01/22 02:50 06/01/22 02:50 06/01/22 02:50 06/01/22 02:50 06/01/22 02:50 06/01/22 02:50 Oxygen Delivery Method Room Air Weight: 135 lb 9.349 oz Body Mass Index (BMI) 22.5 Intake & Output: Intake and Output for Last 24 Hours 05/30/22 05/31/22 06/01/22 23:59 23:59 23:59 Intake Total 100 / 100 Output Total 300 / 300 Balance 100 / 100 -300 / -300 Lab / Micro Data Result Diagrams: 05/30/22 19:50 Labs: Laboratory Results - last 24 hr 05/30/22 19:50: Syphilis Total Ab Non-reactive Micro: Microbiology 05/30/22 19:50 Nasal Secretion SARS-CoV-2 Antigen (Rapid) - Final ROS Constitutional Constitutional: Reports systems reviewed and no addt'l complaints, except as documented Cardiovascular Cardiovascular: Reports systems reviewed and no addt'l complaints, except as documented Respiratory/Chest Respiratory/Chest: Reports systems reviewed and no addt'l complaints, except as documented Gastrointestinal Gastrointestinal: Reports systems reviewed and no addt'l complaints, except as documented Physical Exam Const alert, oriented x3 and no apparent distress HEENT Head and Scalp: atraumatic Resp normal respiratory effort GI soft to palpation and non-tender Bimanual Exam - Vag & Uterus: uterus non-tender Uterus Palpation: uterus fundus firm (below Umbilicus) Assessment & Plan (1) (vaginal after ): COMMENT: 40+4, by KELSIE, baby sade Montemayor 1min 45 sec shoulder dystocia PLAN: Plan s/p PPD # 2 1. routine post delivery care 2. breast feeding- support given 3. rh positive 4. rubella immune
--- NOTE | 2022-06-01 08:35 | DCINST_ITS ---
Discharge Instructions Diet Discharge Diet: No restrictions Activity Discharge Activity: Return to Normal Activity, May Drive, May Shower and May Take a Tub Bath (in 4 weeks) May resume sexual activity in: 6-8 weeks (after seen by OB provider) Weight Bearing Status: Full weight bearing Lifting Restrictions: none Dressing / Incision Call your doctor if you observe: Fever of 101 or Higher, Inability to urinate, Using more than 1 pad per hour (for more than 2 hours in a row or more), Shortness of breath, Dizziness, Chest pain and - (headache not controlled with tylenol, change in vision) Follow Up Care When: in 6 weeks for visit, call the office to make the appointment. If you had elevated blood pressures call the office to be seen within 1 week. Test Results: Test results from this visit will be discussed in further detail at your follow- up appointment, if applicable. Discharge Plan Admission Admit Date/Time: 05/30/22 19:35 Attending Provider: Jayne Chavez Primary Care Provider: Care Physician,Rocio Primary Discharge Orders/Prescriptions Prescriptions: No Action folic acid 1 mg tablet 1 mg PO DAILY vit,[id number] 1 TABLET tablet 1 tab PO DAILY Referrals / Follow Up: Care Physician,No Primary [Primary Care Provider] - Disposition Disposition (needs filled in before D/C Order can be placed): Home, Self Care
[2022-06-01 08:40] VITALS: BP 97/48; PULSE 80; RESP 16; TEMP 36.5; O2SAT 97
== END 2022-06-01 11:05 | disposition home or self-care (01) | DRG 807 ==
LOC: WPOUT 19:35 → WP 19:35
PROVIDERS: Admitting Provider Registered Nurse; Visit Provider Registered Nurse
DX: O48.0 Post-term pregnancy (principal); Z37.0 Single live birth; D64.9 Anemia, unspecified; O66.0 Obstructed labor due to shoulder dystocia; O99.02 Anemia complicating childbirth; O77.0 Labor and delivery complicated by meconium in amniotic fluid; O34.211 Maternal care for low transverse scar from previous cesarean delivery; O69.1XX0 Labor and delivery complicated by cord around neck, with compression, not applicable or unspecified; Z3A.40 40 weeks gestation of pregnancy; Z20.822 Contact with and (suspected) exposure to COVID-19
CPT/HCPCS: 59025; 59050; 85025; 86703; 86780; 86803; 86850; 86900; 86901; 87340; 87811; 99218; J7120; G0378

== ENCOUNTER → 2023-08-26 | Outpatient (CLI) | payer OTHER, SELFPAY ==
--- OUTSIDE RECORDS SUMMARY | 2023-08-26 17:19 | XMS RPT_ITS | CCD ---
Author Name Unknown Address [address] [place] [address] Organization [facility] Care Team Providers Care Technical Training Specialist Name Role Phone VANITA AMIN Unavailable Unavailable VANITA AMIN Unavailable Unavailable VANITA AMIN Unavailable Unavailable MERON MOURA Unavailable Unavailable MERON MOURA Unavailable Unavailable PROVIDER, UNKNOWN Unavailable Unavailable PROVIDER, UNKNOWN Unavailable Unavailable PROVIDER, UNKNOWN Unavailable Unavailable Results Test Name Value Interpretation Reference Range Facil ity Encounters Encounter Date Encounter Type Care Provider Facility Start: 02-19-2017 End: 02-19-2017 Emergency department patient visit VANITA AMIN [facility] Payers Date Payer Category Payer Policy ID Unknown [id number] Summary Purpose Family History No Family History Records Found Advance Directives No Advanced Directives Records Found Additional Source Comments INFORMATION SOURCE (unrecogn ized section and content) FOR RECORDS PERTAINING TO PATIENTS WHO ARE OR HAVE BEEN ENROLLED IN A CHEMICAL DEPENDENCY/SUBSTANCEABUSE PROGRAM, SOME INFORMATION MAY BE OMITTED. This clinical summary was aggregated from multiple sources. Caution should be exercised in using it in the provision of clinical care. This summary normalizes information from multiple sources, and as a consequence, information in this document may materially change the coding, format and clinical context of patient data. In addition, data may be omitted in some cases. CLINICAL DECISIONS SHOULD BE BASED ON THE PRIMARY CLINICAL RECORDS. [employer] [facility]. provides no warranty or guarantee of the accuracy or completeness of information in this document.
[2023-08-29 21:07] LABS: Chlamydia By Nucleic Acid AMP Negative (Negative); Gonococcus By Nucleic Acid AMP Negative (Negative)
== END | disposition home or self-care (01) ==
LOC: LABSPEC 17:02
PROVIDERS: Visit Provider Registered Nurse
DX: Z34.90 Encounter for supervision of normal pregnancy, unspecified, unspecified trimester (principal)
CPT/HCPCS: 87491; 87591

== ENCOUNTER → 2023-08-26 | Outpatient (CLI) | payer OTHER, SELFPAY ==
--- OUTSIDE RECORDS SUMMARY | 2023-08-26 17:21 | XMS RPT_ITS | CCD ---
Author Name Unknown Address [address] [place] [address] Organization [facility] Care Team Providers Care Drum Worker Name Role Phone VANITA AMIN Unavailable Unavailable VANITA AMIN Unavailable Unavailable VANITA AMIN Unavailable Unavailable MERON MOURA Unavailable Unavailable MERON MOURA Unavailable Unavailable PROVIDER, UNKNOWN Unavailable Unavailable PROVIDER, UNKNOWN Unavailable Unavailable PROVIDER, UNKNOWN Unavailable Unavailable Results Test Name Value Interpretation Reference Range Facil ity Encounters Encounter Date Encounter Type Care Provider Facility Start: 02-19-2017 End: 02-19-2017 Emergency department patient visit VANITA AMIN [facility] Payers Date Payer Category Payer Policy ID Unknown [id number] Summary Purpose Family History No Family History [...] BE BASED ON THE PRIMARY CLINICAL RECORDS. [employer] [facility]. provides no warranty or guarantee of the accuracy or completeness of information in this document.
== END | disposition home or self-care (01) ==
PROVIDERS: Referring Provider Registered Nurse; Visit Provider Registered Nurse
DX: Z34.90 Encounter for supervision of normal pregnancy, unspecified, unspecified trimester (principal); Z3A.00 Weeks of gestation of pregnancy not specified
CPT/HCPCS: 87086

== ENCOUNTER → 2023-11-08 | Outpatient (CLI) | payer SELFPAY, OTHER ==
--- NOTE | 2023-11-08 08:11 | US_ITS ---
STUDY: SECOND AND THIRD TRIMESTER OBSTETRICAL ULTRASOUND REASON FOR EXAM: Female, 33 years old supervision high risk LMP: June 26, 2023. TECHNIQUE: Transabdominal and Transvaginal TECHNICAL QUALITY: Adequate. PRIOR ULTRASOUND: None. FINDINGS: There is a single intrauterine fetus. The fetus is in a cephalic presentation. There is demonstrated cardiac activity with a heart rate of 162 bpm. There is a normal amniotic fluid volume. The largest amniotic fluid pocket measures 3.3 cm x 8.4 cm. The amniotic fluid index (NASH) is within normal limits. The placenta is anterior in location and is not low lying. There are Grade 1 placental changes. The cervix measures 9.3 cm in length. The adnexal regions are not visualized. BIOMETRY: BPD: 4.58 cm: 19 weeks, 6 days HC: 17.06 cm: 19 weeks, 5 days AC: 14.67 cm: 20 weeks, 0 days FL: 3.11 cm: 19 weeks, 5 days CI: 80.4% FL/BPD: 68% FL/HC: FL/AC: 21.2% HC/AC: 1.16 age by current US: 19 weeks, 4 days. KAREEN by current US: March 30, 2024. Estimated weight: 316 grams, +/- 47 grams, 75.8 %. Age by LMP: 19 weeks, 2 days. KAREEN by LMP: April 01, 2024. ANATOMY: Gender: Male Cranium: Normal lateral ventricles. Normal choroid plexus. Normal cerebellum. Normal cisterna magna. Normal face, nose and lips. Chest: Normal 4-chamber heart. Abdomen/Pelvis: Normal diaphragm. Normal stomach. Normal abdominal wall. Normal cord insertion. Normal 3 vessel cord. Normal kidneys. Normal bladder. Spine: Normal cervical spine. Normal thoracic spine. Normal lumbar spine. Normal sacrum. Extremities: Normal bilateral upper extremities. Normal bilateral lower extremities. US/OB Anatomy w/ Transvaginal IMPRESSION: Single live intrauterine gestation with a mean gestational age of 19 weeks and 4 days. Electronically Signed: Patrick Lockhart MD at 14:14 EDT ,
[2023-11-08 09:55] LABS: Absolute Lymphocyte Count 1.07 X10^3/uL (0.83-4.51); Absolute Neutrophil Count 3.9 X10^3/uL (2.0-7.7); Basophil# 0.04 X10^3/uL; Basophil% 0.7 % (0-1); Eosinophil# 0.04 X10^3/uL; Eosinophils% 0.7 % (0-5); Hematocrit 33.8 % (37-47); Lymphocyte # 1.07 X10^3/ul (0.83-4.51); Lymphocyte % 19.9 % (19-41); Mean Corp Hgb Conc 32.5 g/dL (32-36); Mean Corpuscular Hgb 29.6 pg (27.0-32.0); Mean Corpuscular Volume 90.9 fL (81-99); Monocyte# 0.28 X10^3/uL; Monocyte% 5.2 % (0-10); NRBC Flagged by Analyzer 0 % (0-5); Neutrophil # 3.94 X10^3/uL (2.7-7.7); Neutrophil % 73.1 % (47-70); Platelet Count 217 K/mm3 (150-450); RBC Distribution Width CV 14.9 % (11.6-14.6); RBC Distribution Width SD 49.4 fl (35.1-43.9); Red Blood Count 3.72 M/mm3 (4.2-5.4); White Blood Count 5.4 K/mm3 (4.4-11.0)
[2023-11-08 10:46] LABS: HIV - WCH Non-Reactive (Nonreactive); Hepatitis B Surface Antigen Non-Reactive (Nonreactive); Hepatitis C Antibody Non-Reactive (Nonreactive); Rubella IgG Equiv (Nonreactive); Syphilis Antibodies Non-reactive
== END | disposition home or self-care (01) ==
PROVIDERS: Registered Nurse; Referring Provider Advanced Practice Midwife; Visit Provider Advanced Practice Midwife
DX: O09.90 Supervision of high risk pregnancy, unspecified, unspecified trimester (principal); Z3A.00 Weeks of gestation of pregnancy not specified
CPT/HCPCS: 36415; 76805; 76817; 85025; 86703; 86762; 86780; 86803; 86850; 86900; 86901; 87340

== ENCOUNTER → 2023-12-20 | Outpatient (CLI) | payer OTHER, SELFPAY ==
[2023-12-20 15:29] LABS: Absolute Lymphocyte Count 0.98 X10^3/uL (0.83-4.51); Absolute Neutrophil Count 5.1 X10^3/uL (2.0-7.7); Basophil# 0.02 X10^3/uL; Basophil% 0.3 % (0-1); Eosinophil# 0.04 X10^3/uL; Eosinophils% 0.6 % (0-5); Hematocrit 30.5 % (37-47); Hemoglobin 9.6 g/dL (12.0-15.0); Lymphocyte # 0.98 X10^3/ul (0.83-4.51); Lymphocyte % 15.3 % (19-41); Mean Corp Hgb Conc 31.5 g/dL (32-36); Mean Corpuscular Hgb 30.1 pg (27.0-32.0); Mean Corpuscular Volume 95.6 fL (81-99); Mean Platelet Vol. 9.6 fl (6.2-12.0); Monocyte# 0.28 X10^3/uL; Monocyte% 4.4 % (0-10); NRBC Flagged by Analyzer 0 % (0-5); Neutrophil # 5.05 X10^3/uL (2.7-7.7); Neutrophil % 79.1 % (47-70); Platelet Count 227 K/mm3 (150-450); RBC Distribution Width CV 13.9 % (11.6-14.6); RBC Distribution Width SD 48.8 fl (35.1-43.9); Red Blood Count 3.19 M/mm3 (4.2-5.4); White Blood Count 6.4 K/mm3 (4.4-11.0)
[2023-12-20 15:54] LABS: Glucose Challenge Gest 1H 50g 149 mg/dL (70-140)
[2023-12-20 16:42] LABS: HIV - WCH Non-Reactive (Nonreactive); Syphilis Antibodies Non-reactive
== END | disposition home or self-care (01) ==
LOC: LAB 14:21
PROVIDERS: Referring Provider Obstetrics & Gynecology; Visit Provider Obstetrics & Gynecology
DX: O09.92 Supervision of high risk pregnancy, unspecified, second trimester (principal); Z3A.19 19 weeks gestation of pregnancy; Z13.1 Encounter for screening for diabetes mellitus
CPT/HCPCS: 36415; 82950; 85025; 86703; 86780

== ENCOUNTER → 2024-03-04 | Outpatient (CLI) | payer SELFPAY, OTHER | END | disposition home or self-care (01) | PROVIDERS: PCP Advanced Practice Midwife; Referring Provider Advanced Practice Midwife; Visit Provider Advanced Practice Midwife | DX: O09.92 Supervision of high risk pregnancy, unspecified, second trimester (principal); Z3A.00 Weeks of gestation of pregnancy not specified | CPT/HCPCS: 87081 ==

== ENCOUNTER 2024-03-07 22:20 | Inpatient (IN) | payer SELFPAY, OTHER ==
[2024-03-07] VITALS (18 sets, daily range): BP systolic 105–123; BP diastolic 67–78; PULSE 56–86; RESP 16; TEMP 36.9–37; O2SAT 98–100; BMI 22.4
[2024-03-07 22:42] LABS: Absolute Lymphocyte Count 1.51 X10^3/uL (0.83-4.51); Absolute Neutrophil Count 7.2 X10^3/uL (2.0-7.7); Basophil# 0.03 X10^3/uL; Basophil% 0.3 % (0-1); Eosinophil# 0.05 X10^3/uL; Eosinophils% 0.5 % (0-5); Hematocrit 36.3 % (37-47); Hemoglobin 12.1 g/dL (12.0-15.0); Lymphocyte # 1.51 X10^3/ul (0.83-4.51); Lymphocyte % 16.1 % (19-41); Mean Corp Hgb Conc 33.3 g/dL (32-36); Mean Corpuscular Hgb 31.3 pg (27.0-32.0); Mean Corpuscular Volume 93.8 fL (81-99); Mean Platelet Vol. 10.6 fl (6.2-12.0); Monocyte% 5.3 % (0-10); NRBC Flagged by Analyzer 0 % (0-5); Neutrophil # 7.23 X10^3/uL (2.7-7.7); Neutrophil % 77.4 % (47-70); Platelet Count 150 K/mm3 (150-450); RBC Distribution Width CV 14.1 % (11.6-14.6); Red Blood Count 3.87 M/mm3 (4.2-5.4); White Blood Count 9.4 K/mm3 (4.4-11.0)
[2024-03-07] MEDS: Oxytocin 15 Units/NS 250ml 15 UNITS/250 ML IV.SOLN 334 UNITS IV (22:42)
--- NOTE | 2024-03-07 22:49 | HP.PCM.OB_ITS ---
HPI - General General Date of Admission: 03/07/24 HPI Narrative RUT BOTELLO, is a 33 y/o @ 36 weeks3 days who presents to L&D at 9 cm dilated. She has a history of 4 vaginal deliveries and one section. She has successfully delivered vaginally x 3 and would like a trial of labor after section. Maternal Data Information KAREEN Calculator Estimated Delivery Date Method Current WG Current Estimate 04/01/24 LMP (Certain) 36w 3d PFSH PFSH Medical History Rubella immune status not known Mild anemia Home Medications ?Medication ?Instructions ?Recorded ?Last Taken ?Type vits,calcium no.78-iron 1 tab PO DAILY 06/14/17 05/30/22 09:00 History fumarate-folic acid 29 mg-1 mg 1 tab tablet folic acid 1 mg tablet 1 mg PO DAILY 11/07/21 05/30/22 12:00 History 1 tab Allergy/AdvReac Type Severity Reaction Status Date / Time No Known Allergies Allergy Verified 03/07/24 22:17 Surgical History History of delivery affecting History of delivery Social History adopted: No household members: spouse housing: house current occupational status: unemployed current occupation: [employer] current occupational exposures/hazards: No pets and animals: No history of recent travel: No sexually active: Yes Smoking Status: Never smoker alcohol intake: never substance use type: does not use caffeine: No what type of physical activity do you participate in: walking seatbelt use: always do you feel safe at home: Yes additional social history: [facility] [employer] Patient is a [employer] History 7 Elective abortions 1 Hx Para 5 Spontaneous abortions 0 Hx # Term Pregnancies 0 Ectopic pregnancies 0 Hx # Pregnancies 0 Multiple births 0 # of living children 5 Past Pregnancies Del. Date Name GA/Weeks Outcome Route Bth Weight Gen Labor Lgth Anesthesia Del Locatn Provider FOB Unknown 2013 Chapo 40 live - full term 7lbs 10oz Female 8 none [employer] Rachael Solitario Unknown 2014 [place] 40 live - full term 6lbs 6oz Mal e 0 spinal [facility] unknown Altaf Unknown 2016 Robert 38 live - full term 7lbs 2oz Male 8 none [facility] Mukesh Solitario 03/17/19 Branden 38 live - full term 7lbs 6oz Male 8 no ne [facility] ANTONETTE Solitario 05/31/22 Sim 40 live - full term Male none [facility] Jayne Chavez, MIRIAM Solitario Delivery Date: Last Updated by: Yarely Somers No complications Delivery Date: Last Updated by: Мария Garibay MD michel syndrome, breech Delivery Date: Last Updated by: Yarely Somers No complications with successful Delivery Date: 03/17/19 Last Updated by: Yarely Somers no complications with Delivery Date: 05/31/22 Last Updated by: Ellie Shirley see problem list for complications, and shoulder dystocia. Visit Details Expected Delivery Route/Plan patient counseled regarding risks/benefits of trial of labor versus repeat . ACOG/uptodate education given to patient. [] % likelihood of success per calculator TOLAC consent form signed: [] Labor Preferences- CB/BF classes: [] labor support person: [] labor intervention preferences: [] pain management options preferred: [] cut cord/dad catch: [] : [] PP control planned: [] discussed possible routes of delivery and associated risks: [] special requests: [] Plans Covid status: [] Flu vaccine: [] Tdap vaccine: declined Rhogam: [] LARC form signed: [] Problem list reviewed and updated with the most current plan of care details and appropriate orders placed. Relevant counseling for the gestational age provided. Continue routine care and follow up unless otherwise noted in visit notes/problem list details OB Flowsheet Initial Weight: 110 lb Date -?-?-?-?-?-?-?-?-?-?-?-?- EGA Weight BP Urine Prot -?-?-?-?-?-?-?-?-?-?-?-?- Glucose FHR FuHt Pres Dilation -?-?-?-?-?-?-?-?-?-?-?-?- Effaced St Visit Note 08/26/23 -?-?-?-?-?-?-?-?-?-?-?-?- 8w 5d 110 lb 2 oz (+2 oz) 105/66 -?-?-?-?-?-?-?-?-?-?-?-?- 185 -?-?-?-?-?-?-?-?-?-?-?-?- LC- CRL con with LMP. declines nipts. 7.8mm FILIPE no further bleeding. 09/30/23 -?-?-?-?-?-?-?-?-?-?-?-?- 13w 5d 114 lb (+4 lb) 106/66 Negative -?-?-?-?-?-?-?-?-?-?-?-?- Negative 168 -?-?-?-?-?-?-?-?-?-?-?-?- kw- no vb/crampi ng. US ordered. Plan labs and US at next visit. 11/08/23 -?-?-?-?-?-?-?-?-?-?-?-?- 19w 2d 120 lb (+10 lb) 108/56 Negative -?-?-?-?-?-?-?-?-?-?-?-?- Negative 150 -?-?-?-?-?-?-?-?-?-?-?-?- Sm- no vb crampi ng 12/20/23 -?-?-?-?-?-?-?-?-?-?-?-?- 25w 2d 126 lb (+16 lb) 94/54 -?-?-?-?-?-?-?-?-?-?-?-?- 140 -?-?-?-?-?-?-?-?-?-?-?-?- SM- no vb lof go od fm no regualr ctx 01/23/24 -?-?-?-?-?-?-?-?-?-?-?-?- 30w 1d 128 lb (+18 lb) 94/60 Trace -?-?-?-?-?-?-?-?-?-?-?-?- Negative 145 30 -?-?-?-?-?-?-?-?-?-?-?-?- KW-no vb/lof/ctx . good fm. discussed 36 week US due to hx shoulder dystocia. patient will consider. 02/12/24 -?-?-?-?-?-?-?-?-?-?-?-?- 33w 0d 131 lb (+21 lb) 97/59 Negative -?-?-?-?-?-?-?-?-?-?-?-?- Negative 135 33 -?-?-?-?-?-?-?-?-?-?-?-?- KW- no vb/lof/ct x. good fm. KW- no vb/lof/ctx. good fm. planning 36-37 week US for Hx of 9+lb baby and moderate shoulder dystocia. with last preg. is doing random fasting BS at home per pt and reports are all under 95. 03/04/24 -?-?-?-?-?-?-?-?-?-?-?-?- 36w 0d 134 lb (+24 lb) 106/65 Trace -?-?-?-?-?-?-?-?-?-?-?-?- Negative 130 36 Cephalic 2 -?-?-?-?-?-?-?-?-?-?-?-?- 50 -2 KW- no vb/ lof/ctx. good fm. GBS today. US next saturday. ROS Constitutional Constitutional: Denies change in weight, fatigue, fever(s), headache(s), poor appetite or weakness Eyes Eyes: Denies blurry vision, change in vision, seeing flashes or spots in vision ENT HEENT: Denies dizziness, headache(s), loss taste/smell or sore throat Cardiovascular Cardiovascular: Denies chest pain, dizziness, dyspnea, irregular heart rhythm, leg edema, palpitations, rapid heart rate or vomiting Respiratory/Chest Respiratory/Chest: Denies chest tightness, cough, dyspnea or breast pain Gastrointestinal Gastrointestinal: Denies abdominal pain, anorexia, constipation, cramping, diarrhea, hemorrhoids, vomiting or weight changes Genitourinary Genitourinary: Denies dysuria, flank pain, genital lesions, genital pain, urinary frequency or urinary urgency Musculoskeletal Musculoskeletal: Denies back pain, difficulty walking, joint pain, limited range of motion, muscle cramps or numbness Integumentary Integumentary: Denies lesions or unusual bruising Neurologic Neurologic: Denies abnormal movements, abnormal speech, dizziness, numbness, seizure-like activity or syncope Psychiatric Psychiatric: Denies anxiety, behavioral changes, change in appetite, change in libido, cognitive impairment, confusion, depression, difficulty concentrating, hallucinations or suicidal thoughts Endocrine Endocrinology: Denies excessive sweating, polydipsia or polyuria Hematologic/Lymphatic Hematologic/Lymphatic: Denies easy bleeding, easy bruising or lymphadenopathy Allergic/Immunologic Allergic/Immunologic: Denies itchy eyes, lip swelling, seasonal rhinorrhea, rhinitis, throat swelling, tongue swelling, eczemia, wheezing or asthma Vital Signs Vital Signs Vital Signs: 03/07/24 22:25 03/07/24 22:25 03/07/24 22:25 Temperature Temperature Source Temporal Pulse Rate 76 Respiratory Rate Blood Pressure 123/78 H BP Systolic 123 BP Diastolic 78 Pulse Ox 03/07/24 22:25 03/07/24 22:25 03/07/24 22:25 Temperature 98.6 F Temperature Source Pulse Rate Respiratory Rate 16 Blood Pressure BP Systolic BP Diastolic Pulse Ox 98 03/07/24 22:46 03/07/24 22:46 03/07/24 22:46 Temperature Temperature Source Pulse Rate 76 Respiratory Rate Blood Pressure 122/67 H BP Systolic 122 BP Diastolic 67 Pulse Ox 99 Weight Weight: 135 lb 2.294 oz Body Mass Index (BMI) 22.4 Physical Exam Const alert, oriented x3, no apparent distress and healthy appearing General Appearance: cooperative; Negative for anxious HEENT normocephalic Face and Sinus: normal facial exam Eyes EOMs intact bilaterally and no scleral icterus General Eye: normal appearance of both eyes Neck full ROM and supple Lymph Lymphatic: no lymphadenopathy noted Chest Chest: abnormal inspection of the chest Resp normal respiratory effort Effort and Inspection: able to speak in complete sentences Cardio regular rate GI soft to palpation and non-tender Inspection: gravid Palpation: soft; Negative for tender external exam normal Amniotic Fluid: ROM+plus Back/Spine no CVA tenderness Extremity normal to inspection, full ROM and no clubbing, cyanosis or edema General Extremity: Negative for calf tenderness or edema Skin Lesions: no lesions Rashes: no rashes Psych mental status grossly normal Labs Labs Labs: Blood Type A POSITIVE Antibody Screen NEGATIVE Hct 36.3 % (37-47) L Hgb 12.1 g/dL (12.0-15.0) Obstetrics Ultrasound Syphilis Total Ab Non-reactive Rubella IgG Antibody Equiv (Nonreactive) Hep Bs Antigen Non-Reactive (Nonreactive) Hepatitis C Antibody Non-Reactive (Nonreactive) Hepatitis C Ab (EIA) <0.1 s/co ratio (0.0-0.9) Chlamydia DNA (MARY JANE) Negative (Negative) N.gonorrhoeae DNA (MARY JANE) Negative (Negative) HIV 1&2 Antibody Non-Reactive (Nonreactive) Glucose 1 Hr 50 gm 149 mg/dL (70-140) H Group B Strep DNA Negative (Negative) Rhogam given: No Assessment & Plan (1) Abnormal glucose: COMMENT: 3 HR GTT- Normal (2) History of delivery affecting : COMMENT: h/o successful VBACx3 (3) : QUALIFIERS: Weeks of gestation: 36 weeks Qualified Code(s): Z3A.36 - 36 weeks gestation of COMMENT: normal anatomy, carrier, ntd, and genetic screening declined. (4) History of shoulder dystocia in prior : COMMENT: 36 week growth (5) Supervision of high-risk : QUALIFIERS: Trimester: second trimester Qualified Code(s): O09.92 - Supervision of high risk , unspecified, second trimester COMMENT: PRR KAREEN 03/29/2024 boy PC: Robert Cowan [place], [place], Jesse. Altaf (6) (vaginal after ): COMMENT: 40+4, by LC, baby boy Sim 1min 45 sec shoulder dystocia (7) Ovarian cyst: (8) Rubella immune status not known: COMMENT: non-immune vaccine after (9) Family history of congenital anomaly: COMMENT: previous child with michel syndrome, family history dwarfism, declines any genetic screening. PLAN: Plan patient counseled regarding risks/benefits of trial of labor versus repeat . ACOG/uptodate education given to patient. TOLAC consent form signed Patient presents IAL, plan expectant management for , pitocin/AROM PRN if needed. Pain management: none . GBS unkown . Management of any complications: see above I have reviewed the [facility] and made any clinically relevant updates.
--- NOTE | 2024-03-07 22:52 | OP.PCM_ITS ---
Assessment & Plan (1) Abnormal glucose: COMMENT: 3 HR GTT- Normal (2) History of delivery affecting : COMMENT: h/o successful VBACx3 (3) : QUALIFIERS: Weeks of gestation: 36 weeks Qualified Code(s): Z3A.36 - 36 weeks gestation of COMMENT: normal anatomy, carrier, ntd, and genetic screening declined. (4) History of shoulder dystocia in prior : COMMENT: 36 week growth (5) Supervision of high-risk : QUALIFIERS: Trimester: second trimester Qualified Code(s): O09.92 - Supervision of high risk , unspecified, second trimester COMMENT: PRR KAREEN 03/29/2024 boy PC: Robert Cowan [place], [place], Jesse. Altaf (6) (vaginal after ): COMMENT: 40+4, by LC, baby boy Sim 1min 45 sec shoulder dystocia (7) Ovarian cyst: (8) Rubella immune status not known: COMMENT: non-immune vaccine after (9) Family history of congenital anomaly: COMMENT: previous child with michel syndrome, family history dwarfism, declines any genetic screening. Maternal Data Information KAREEN Calculator Estimated Delivery Date Method Current WG Current Estimate 04/01/24 LMP (Certain) 36w 3d Final KAREEN: 04/01/24 Final KAREEN Source: LMP Gestational age: 36 weeks 3 days Vaginal Delivery Maternal Presentation Maternal Presentation: Active Labor Type of Induction: Amniotomy Operative Information Date of Procedure: 03/07/24 Pre-Operative Diagnosis: @ 36 weeks 3 days, active labor, history of section, desires TOLAC Post-Operative Diagnosis: @ 36 weeks 3 days, active labor, history of c esarean section, desires TOLAC Surgery / Procedure Performed: Spontaneous Vaginal Delivery and Type of Anesthesia: None Estimated Blood Loss: 100cc Time of Delivery: 22:37 Findings Description of Procedure: Patient began pushing and delivered the head in the HERMAN presentation. The head was delivered atraumatically. The anterior and posterior shoulders delivered without complication followed by the rest of the and the infant was placed on the maternal abdomen. Delayed cord clamping was employed for approximately 60 seconds. Cord was clamped and cut and gentle traction was applied to the cord and the placenta delivered spontaneously immediately following it was noted to be intact with three-vessel cord. The perineum and vagina were inspected and noted to have no laceration. EBL was 100 cc. Patient and tolerated delivery well. baby boy Ritesh Presentation: Vertex Amniotic Membrane Rupture Type: Artificial Amniotic Fluid Description: Clear Cord Vessel Description: 3 Vessels Cord Entanglement: None Infant A Gender: Male (1 minute): 9 (5 minute): 9 Delayed Cord Clamping: Yes Post Vaginal Delivery Medications Given After Delivery: IM Pitocin Episiotomy Description: None Laceration: None Complication Complications: None Multi Select Codes Urinary/Genital Urinary/Genital CPT Codes: 26099 Vaginal Delivery [facility]
--- NOTE | 2024-03-07 22:56 | DCINST_ITS ---
Discharge Instructions Diet Discharge Diet: No restrictions Activity Discharge Activity: Return to Normal Activity, May Not Drive (while taking narcotic pain medications.) and May Shower May resume sexual activity in: 4-6 weeks Dressing / Incision Call your doctor if your incision/area has: Continuous Slow Oozing, Sudden Increased Bleeding, Increased Pain/ Swelling, Increased Redness and Foul Smelling Discharge Follow Up Care Please Follow Up With: Francie Beckham DO When: Call [phone] to make an appointment with your doctor in 6 weeks. If you had elevated blood pressure or 4th degree laceration, you will need to be seen in 2 weeks. Test Results: Test results from this visit will be discussed in further detail at your follow- up appointment, if applicable. Discharge Plan Admission Admit Date/Time: 03/07/24 22:20 Primary Reason for Your Visit: vaginal delivery Attending Provider: Francie Beckham Primary Care Provider: Care Physician,Rocio Primary Discharge Orders/Prescriptions Prescriptions: No Action folic acid 1 mg tablet 1 mg PO DAILY vit,[id number] 1 TABLET tablet 1 tab PO DAILY Referrals / Follow Up: Care Physician,No Primary [Primary Care Provider] - Disposition Disposition (needs filled in before D/C Order can be placed): Home, Self Care
[2024-03-07] MEDS: Oxytocin 15 Units/NS 250ml 15 UNITS/250 ML IV.SOLN 83 UNITS IV (23:14)
[2024-03-07 23:19] LABS: Syphilis Antibodies Non-reactive
[2024-03-08] VITALS (22 sets, daily range): BP systolic 111–143; BP diastolic 59–86; PULSE 53–82; RESP 16; TEMP 36.6–37.2; O2SAT 98–99
--- NOTE | 2024-03-08 12:09 | PCM.PN.OB ---
Subjective Subjective Patient doing well without complaints. Tolerating PO. Ambulating and voiding without difficulty. Feeding well. Denies chest pain, shortness of breath, calf pain/swelling, fevers, chills, lightheadedness. Objective Data Objective Data Vital Signs: Vital Signs Temp Pulse Resp BP Pulse Ox O2 Del Method 98.9 F 65 16 114/66 99 Room Air 03/08/24 08:30 03/08/24 08:30 03/08/24 08:30 03/08/24 08:30 03/08/24 08:30 03/08/24 08:30 Oxygen Delivery Method Room Air Weight: 135 lb 2.294 oz Body Mass Index (BMI) 22.4 Intake & Output: Intake and Output for Last 24 Hours 03/06/24 03/07/24 03/08/24 23:59 23:59 23:59 Intake Total 178.13 / 178.13 250 / 250 Output Total 100 / 100 400 / 400 Balance 78.13 / 78.13 -150 / -150 Lab / Micro Data Attestation: I reviewed the patient's lab results. 03/07/24 22:25 Labs: Laboratory Results - last 24 hr 03/07/24 22:25: WBC 9.4, RBC 3.87 L, Hgb 12.1, Hct 36.3 L, MCV 93.8, MCH 31.3, MCHC 33.3, RDW Std Deviation 48.0 H, RDW Coeff of Machelle 14.1, Plt Count 150, MPV 10.6, Immature Gran % (Auto) 0.400, Neut % (Auto) 77.4 H, Lymph % (Auto) 16.1 L, [facility] [place] [facility] % (Auto) 5.3, Eos % (Auto) 0.5, Baso % (Auto) 0.3, Absolute Neuts (auto) 7.2, Absolute Lymphs (auto) 1.51, Nucleated RBC % 0, Syphilis Total Ab Non-reactive, Blood Type A POSITIVE, Antibody Screen NEGATIVE ROS Constitutional Constitutional: Reports systems reviewed and no addt'l complaints, except as documented; Denies anorexia or headache(s) Cardiovascular Cardiovascular: Reports systems reviewed and no addt'l complaints, except as documented; Denies dizziness, dyspnea, nausea or tachypnea Respiratory/Chest Respiratory/Chest: Reports systems reviewed and no addt'l complaints, except as documented; Denies cough, dyspnea, shortness of breath at rest or tachypnea Gastrointestinal Gastrointestinal: Reports systems reviewed and no addt'l complaints, except as documented; Denies abdominal pain, constipation or nausea Genitourinary Genitourinary: Reports systems reviewed and no addt'l complaints, except as documented; Denies burning urination, difficulty urinating, dysuria, urinary frequency or urinary incontinence Musculoskeletal Musculoskeletal: Reports systems reviewed and no addt'l complaints, except as documented Integumentary Integumentary: Reports systems reviewed and no addt'l complaints, except as documented Neurologic Neurologic: Reports systems reviewed and no addt'l complaints, except as documented; Denies abnormal speech, dizziness or headache(s) Psychiatric Psychiatric: Reports systems reviewed and no addt'l complaints, except as documented Endocrine Endocrinology: Reports systems reviewed and no addt'l complaints, except as documented Hematologic/Lymphatic Hematologic/Lymphatic: Reports systems reviewed and no addt'l complaints, except as documented Physical Exam Const alert, oriented x3 and no apparent distress Neck full ROM Resp normal respiratory effort, normal air movement and no retractions Effort and Inspection: able to speak in complete sentences and symmetric chest movement GI soft to palpation Bladder / Kidney Exam: bladder normal to palpation Uterus Palpation: uterus fundus Extremity normal to inspection and full ROM Psych mental status grossly normal, thought process normal and cooperative Assessment & Plan (1) Abnormal glucose: COMMENT: 3 HR GTT- Normal (2) History of delivery affecting : COMMENT: h/o successful VBACx3 (3) : QUALIFIERS: Weeks of gestation: 36 weeks Qualified Code(s): Z3A.36 - 36 weeks gestation of COMMENT: normal anatomy, carrier, ntd, and genetic screening declined. (4) History of shoulder dystocia in prior : COMMENT: 36 week growth (5) Supervision of high-risk : QUALIFIERS: Trimester: second trimester Qualified Code(s): O09.92 - Supervision of high risk , unspecified, second trimester COMMENT: PRR KAREEN 03/29/2024 boy PC: Robert Cowan [place], [place], Jesse. Altaf (6) (vaginal after ): COMMENT: JV PLAN: s/p PPD # 1 1. routine post delivery care 2. breast feeding- support given 3. rh positive 4. rubella immune (7) Ovarian cyst: (8) Rubella immune status not known: COMMENT: non-immune vaccine after (9) Family history of congenital anomaly: COMMENT: previous child with michel syndrome, family history dwarfism, declines any genetic screening. Charges/Coding Multi Select Codes Urinary/Genital Urinary/Genital CPT Codes: No Charge
--- NOTE | 2024-03-08 20:53 | VDLE_ITS ---
Reason For Study: Left leg pain Procedure LEFT This is a venous duplex using B-mode, color GSV is normal. flow and spectral Doppler. CFV is compressible, spontaneous, phasic, Exam performed portable in patient room. competent, and demonstrates normal A preliminary report was called and/or faxed augmentation. to [place] [facility]. FV is compressible, spontaneous, phasic, competent and demonstrates normal augmentation. POP V is compressible, spontaneous, phasic, competent and demonstrates normal augmentation. T/P Trunk is compressible. PTV is compressible. LT PerV is compressible. Thrombus filled varicose veins noted in the left prox-mid calf. VL/Venous Duplex US, Unilateral Interpretation Summary Acute superficial vein thrombosis noted in left calf varicosities. Deep veins of the left lower extremity are patent and compressible segmentally. There is no evidence of left lower extremity deep vein thrombosis. The left great saphenous vein renetta ears patent and compressible segmentally. Ordering Physician: Christine Mercado Performed By: Denise Barnhart RVT
[2024-03-09 01:23] VITALS: BP 106/64; PULSE 68; RESP 16; TEMP 37.1; O2SAT 98
--- NOTE | 2024-03-09 05:23 | NURSING ---
Reviewed and agreed with Maric[facility] VOGEL charting.
--- NOTE | 2024-03-09 05:56 | PN.OBGYN_ITS ---
Subjective Subjective Patient doing well without complaints. Tolerating PO. Ambulating and voiding without difficulty. Feeding well. reports left calf pain and tenderness. Denies chest pain, shortness of breath, fevers, chills, lightheadedness. Objective Data Objective Data Vital Signs: Vital Signs Temp Pulse Resp BP Pulse Ox O2 Del Method 98.7 F 68 16 106/64 98 Room Air 03/09/24 01:23 03/09/24 01:23 03/09/24 01:23 03/09/24 01:23 03/09/24 01:23 03/09/24 01:23 Oxygen Delivery Method Room Air Weight: 135 lb 2.294 oz Body Mass Index (BMI) 22.4 Intake & Output: Intake and Output for Last 24 Hours 03/07/24 03/08/24 03/09/24 23:59 23:59 23:59 Intake Total 178.13 / 178.13 250 / 250 Output Total 100 / 100 400 / 400 Balance 78.13 / 78.13 -150 / -150 Lab / Micro Data Attestation: I reviewed the patient's lab results. 03/07/24 22:25 ROS Constitutional Constitutional: Reports systems reviewed and no addt'l complaints, except as documented; Denies anorexia or headache(s) Cardiovascular Cardiovascular: Reports systems reviewed and no addt'l complaints, except as documented; Denies dizziness, dyspnea, nausea or tachypnea Respiratory/Chest Respiratory/Chest: Reports systems reviewed and no addt'l complaints, except as documented; Denies cough, dyspnea, shortness of breath at rest or tachypnea Gastrointestinal Gastrointestinal: Reports systems reviewed and no addt'l complaints, except as documented; Denies abdominal pain, constipation or nausea Genitourinary Genitourinary: Reports systems reviewed and no addt'l complaints, except as documented; Denies burning urination, difficulty urinating, dysuria, urinary frequency or urinary incontinence Musculoskeletal Musculoskeletal: Reports systems reviewed and no addt'l complaints, except as documented Integumentary Integumentary: Reports systems reviewed and no addt'l complaints, except as documented Neurologic Neurologic: Reports systems reviewed and no addt'l complaints, except as documented; Denies abnormal speech, dizziness or headache(s) Psychiatric Psychiatric: Reports systems reviewed and no addt'l complaints, except as documented Endocrine Endocrinology: Reports systems reviewed and no addt'l complaints, except as documented Hematologic/Lymphatic Hematologic/Lymphatic: Reports systems reviewed and no addt'l complaints, except as documented Physical Exam Const alert, oriented x3 and no apparent distress Neck full ROM Resp normal respiratory effort, normal air movement and no retractions Effort and Inspection: able to speak in complete sentences and symmetric chest movement GI soft to palpation Bladder / Kidney Exam: bladder normal to palpation Uterus Palpation: uterus fundus Extremity full ROM and no calf tenderness Extremity Narrative: Left calf warm and tender to touch. General Extremity: calf tenderness and edema Left Lower Extremity: lower leg inspection (erythema noted ) and special tests (doppler ordered) Psych mental status grossly normal, thought process normal and cooperative Assessment & Plan (1) Pain of left lower leg: COMMENT: -doppler ordered (2) Abnormal glucose: COMMENT: 3 HR GTT- Normal (3) History of delivery affecting : COMMENT: h/o successful VBACx3 (4) : QUALIFIERS: Weeks of gestation: 36 weeks Qualified Code(s): Z 3A.36 - 36 weeks gestation of COMMENT: normal anatomy, carrier, ntd, and genetic screening declined. (5) History of shoulder dystocia in prior : COMMENT: 36 week growth (6) Supervision of high-risk : QUALIFIERS: Trimester: second trimester Qualified Code(s): O09.92 - Supervision of high risk , unspecified, second trimester COMMENT: PRR KAREEN 03/29/2024 boy PC: Robert Cowan [place], [place], Jesse. Altaf (7) (vaginal after ): COMMENT: JV PLAN: s/p PPD # 2 1. routine post delivery care 2. breast feeding- support given 3. rh positive 4. rubella immune 5. Discharge pending doppler results (8) Ovarian cyst: (9) Rubella immune status not known: COMMENT: non-immune vaccine after (10) Family history of congenital anomaly: COMMENT: previous child with michel syndrome, family history dwarfism, declines any genetic screening. Charges/Coding Multi Select Codes Urinary/Genital Urinary/Genital CPT Codes: No Charge
--- NOTE | 2024-03-09 05:57 | NURSING ---
Patient rubella equivocal, patient refused the MMR
[2024-03-09 08:17] VITALS: BP 119/66; PULSE 79
[2024-03-09 08:44] VITALS: BP 119/66; PULSE 79; RESP 18; TEMP 37; O2SAT 97
--- NOTE | 2024-03-09 13:03 | PCM.DC.SUM ---
Providers Date of Admission: 03/07/24 Date of Discharge: 03/09/24 Primary Care Physician: No Primary Care Phys Reason For Visit: VAG Diagnosis Discharge Diagnosis (1) Superficial thrombosis of left lower extremity: Status: Acute Code(s): I82.812 - Embolism and thrombosis of superficial veins of left lower extremity (2) Pain of left lower leg: Status: Acute Code(s): M79.662 - Pain in left lower leg (3) Abnormal glucose: Status: Acute Code(s): R73.09 - Other abnormal glucose (4) History of delivery affecting : Status: Acute Code(s): O34.219 - Maternal care for unspecified type scar from previous delivery (5) : Status: Acute Code(s): Z34.90 - Encounter for supervision of normal , unspecified, unspecified trimester Qualifiers: Weeks of gestation: 36 weeks Qualified Code(s): Z3A.36 - 36 weeks gestation of (6) History of shoulder dystocia in prior : Status: Acute Code(s): Z87.59 - Personal history of other complications of , childbirth and the puerperium (7) Supervision of high-risk : Status: Acute Code(s): O09.90 - Supervision of high risk , unspecified, unspecified trimester Qualifiers: Trimester: second trimester Qualified Code(s): O09.92 - Supervision of high risk , unspecified, second trimester (8) (vaginal after ): Status: Acute Code(s): O34.219 - Maternal care for unspecified type scar from previous delivery Plan: s/p PPD # 2 1. routine post delivery care 2. breast feeding- support given 3. rh positive 4. rubella immune 5. Discharge pending doppler results (9) Ovarian cyst: Status: Acute Code(s): N83.209 - Unspecified ovarian cyst, unspecified side (10) Rubella immune status not known: Status: Acute Code(s): Z78.9 - Other specified health status (11) Family history of congenital anomaly: Status: Acute Code(s): Z82.79 - Family history of other congenital malformations, deformations and chromosomal abnormalities Medications at Discharge Home Medications vits,calcium no.78-iron fumarate-folic acid 29 mg-1 mg tablet 1 tab PO DAILY 06/14/17 folic acid 1 mg tablet 1 mg PO DAILY 11/07/21 ibuprofen 600 mg tablet 600 mg PO Q6H PRN PRN Pain Score 1-10 #60 tabs 03/09/24 Hospital Course Operations None Procedures - (Venous doppler) Summary of Care Provided Minutes Spent on Discharge: 30 Physical Exam Const alert, oriented x3 and no apparent distress Neck full ROM Resp normal respiratory effort, normal air movement and no retractions Effort and Inspection: able to speak in complete sentences and symmetric chest movement GI soft to palpation Inspection: incision intact Bladder / Kidney Exam: bladder normal to palpation Uterus Palpation: uterus fundus Extremity full ROM General Extremity: calf tenderness Left Lower Extremity: lower leg inspection (erythema ) and palpation (tender, warm) Psych mental status grossly normal, thought process normal and cooperative Weight / BMI Weight Weight: 135 lb 2.294 oz Body Mass Index (BMI) 22.4 ABG / Lab / Microbiology Data 03/07/24 22:25 D/C Instructions Discharge Diet: No restrictions May shower in (days): 0 May resume sexual activity in: 4-6 weeks Weight Bearing Status: Full weight bearing Additional Activity Instructions: Warm compresses to left lower leg. Motrin daily and PRN for pain. Call your doctor if your incision/area has: Continuous Slow Oozing, Sudden Increased Bleeding, Increased Pain/ Swelling, Increased Redness and Foul Smelling Discharge Call your doctor if you observe: Fever of 101 or Higher and Using more than 1 pad per hour (for 2 hours) Suture Line Care: Avoid Pulling/Pushing and Avoid Pinching/Bending Cleanse incision/area with: Soap & Water and Keep Dressing Clean & Dry Please Follow Up With: Francie Beckham DO When: Call [phone] to make an appointment with your doctor in 6 weeks. Expect call from Dr Peterson's office (vascular surgery) for follow up from blood clot. Warm compresses to left lower leg and take Motrin at least daily. May also use it as needed for pain. Meaningful Use Info Meaningful Use Meaningful Use Diagnoses (Choose all that apply): None applicable Ischemic Stroke Statin Dosing Therapy Reference: STATIN DOSE THERAPY REFERENCE: * Patients > 75 years receive moderate or high dose statin therapy. * Patients 75 years or YOUNGER should receive HIGH intensity statin dose unless contraindicated. You will be required to document reason for non-treatment if statin daily dose does not meet guidelines. HIGH DOSE STATIN THERAPY DAILY Atorvastatin > than or = to 40 mg Rosuvastatin > than or = to 20 mg Amlodipine + Atorvastatin > than or = to 2.5/40 mg Ezetimibe + Simvastatin 10/80 mg Simvastatin 80mg Discharge Plan Admission Admit Date/Time: 03/07/24 22:20 Primary Reason for Your Visit: vaginal delivery Attending Provider: Francie Beckham Primary Care Provider: Care Physician,No Primary Discharge Orders/Prescriptions Prescriptions: New ibuprofen 600 mg Tablet 600 mg PO Q6H PRN PRN (Reason: Pain Score 1-10) Qty: 60 0RF No Action folic acid 1 mg tablet 1 mg PO DAILY vit,[id number] 1 TABLET tablet 1 tab PO DAILY Referrals / Follow Up: Buzz Peterson MD [Med Staff - Active Staff] - (follow up ) Care Physician,No Primary [Primary Care Provider] - Disposition Disposition (needs filled in before D/C Order can be placed): Home, Self Care Charges/Coding Multi Select Codes Urinary/Genital Urinary/Genital CPT Codes: No Charge
--- NOTE | 2024-03-09 13:19 | NURSING ---
in delivery record, corrected documentation of successful
[2024-03-09 13:56] VITALS: BP 106/64; PULSE 85; RESP 17; TEMP 36.6; O2SAT 98
== END 2024-03-09 14:18 | disposition home or self-care (01) | DRG 805 ==
LOC: WPOUT 22:21 → WP 22:24
PROVIDERS: Advanced Practice Midwife; Admitting Provider Obstetrics & Gynecology; Referring Provider Obstetrics & Gynecology; Visit Provider Obstetrics & Gynecology
DX: O34.219 Maternal care for unspecified type scar from previous cesarean delivery (principal); Z37.0 Single live birth; O99.42 Diseases of the circulatory system complicating childbirth; I82.812 Embolism and thrombosis of superficial veins of left lower extremity; N83.209 Unspecified ovarian cyst, unspecified side; O99.814 Abnormal glucose complicating childbirth; O99.892 Other specified diseases and conditions complicating childbirth; Z3A.36 36 weeks gestation of pregnancy; O26.23 Pregnancy care for patient with recurrent pregnancy loss, third trimester; Z87.59 Personal history of other complications of pregnancy, childbirth and the puerperium; Z82.79 Family history of other congenital malformations, deformations and chromosomal abnormalities
CPT/HCPCS: 59025; 59050; 85025; 86780; 86850; 86900; 86901; 93971; 99221; G0378